=== PATIENT | female | born 1925 | race Caucasian/White ===

== ENCOUNTER 2016-12-25 10:26 | Emergency (ER) | payer MEDICARE ==
[~2016-12-25] VITALS: Ht 157.5 cm; Wt 41.4 kg
[~2016-12-25 10:26] MED LIST: AMLO10TA3 PO; CLOP75TA3 PO
[2016-12-25 10:57] VITALS: BP 114/60; PULSE 83; RESP 14; O2SAT 97
[2016-12-25] MEDS ORDERED: Piperacillin-Tazo 3.375 Gm Inj 3.375 GM in Dextrose 5% Minibag Plus 50 ML IV ONE (11:15)
[2016-12-25] MEDS ORDERED: Vancomycin Dose per Pharmacist XX ONE (11:15)
[2016-12-25] MEDS ORDERED: levoFLOXacin Inj 750 MG in IV Premix 1 EACH IV ONE (11:15)
[2016-12-25] MEDS ORDERED: 0.9% Sodium Chloride 1,000 ML IV ONE (11:15)
[2016-12-25] MEDS ORDERED: Vancomycin Inj 750 MG in 0.9% Sodium Chloride 250 ML IV ONE (11:25)
--- NOTE | 2016-12-25 12:20 | ED.REPORT ---
HPI-General Illness Date of Service Dec 25, 2016 ED Provider: Justine Sutton MD Patient is a 89 year old female with a hx of lymphocytic leukemia and bilateral breast cancer who presents to the ED via EMS from [facility] due to a fever. Pt had pneumonia 2 weeks ago and still has a persistent cough and associated weakness. Patient is very hard of hearing but still able to get around her assisted living center well. Nursing Notes Stated Complaint: CHEST XRAY Chief Complaint: General Complaint Nursing Notes Reviewed: Yes Allergies: Coded Allergies: Sulfa (Sulfonamide Antibiotics) (Verified Allergy, Severe, SEVERE THROMBOCYTOPENIA, 01/04/16) aspirin (Verified Allergy, Severe, WHEEZING, PROBLEMS BREATHING, 01/04/16) epinephrine (Verified Allergy, Severe, SYNCOPE, 01/04/16) Scheduled Amlodipine (Amlodipine) 10 Mg Tablet 10 MG PO DAILY Azithromycin (Zithromax (Z-Govind)) 250 Mg Tablet 250 MG PO DAILY 2 pills on day 1, then one pill a day for 4 more days Clopidogrel Bisulfate (Plavix) 75 Mg Tablet 75 MG PO DAILY General Time Seen by MD: 11:18 Chief Complaint Cough Hx Obtained From: Patient Arrived By: Walk-in Sudden in Onset?: Yes Onset Occurred: 2 days ago Symptom Duration: Since onset Recent Healthcare: Recent doctor visit Similar Sx Previous: Yes Past Medical History Past Medical History Notes: Oncologist: Rhea Past Medical History 1. 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 2. Left renal mass, suspicious for renal cell carcinoma, stable. 3. Bilateral macular degeneration. 4. Bilateral early stage breast cancer, resected. 5. Staph infection Past Surgical History Vulvectomy Family History noncontributory Smoking History Never Smoker Social History Alcohol Use: Denies alcohol use Drug Use: Denies drug use Other Social History: Good social support Ambulatory Status Independent Review of Systems Full Review of Systems Constitutional: Reports: Fever Respiratory: Reports: Non-productive cough Complete sys rev & neg: except as marked. Physical Exam Vital Signs Vital Signs Date Time Temp Pulse Resp B/P Pulse Ox O2 Delivery O2 Flow Rate FiO2 12/25/16 14:24 37.2 89 18 122/70 97 Room Air 12/25/16 13:03 37.2 86 18 136/63 100 Room Air 12/25/16 10:57 37.2 83 14 114/60 97 Room Air Initial VS: Reviewed Head / Eyes: Atraumatic, Normocephalic, PERRL ENT: Mucous membranes moist, Conjunctiva normal, No scleral icterus Cardiovascular: Regular rate & rhythm, Heart sounds normal, Intact distal pulses Abdomen / GI: Soft, Non-tender, No guarding, No rebound, No distention Extremities: Vascular intact, Neuro intact, No swelling, No tenderness Skin: Warm, Dry, No cyanosis Neurologic: Alert, Oriented, Nonfocal Psychiatric: Mood/affect normal, Behavior normal, Normal thought content General/Constitutional: Awake, Cooperative hard of hearing and slightly weak, but still able to get around assisted living home Respiratory / Chest: Atraumatic, Breath sounds NL, Breath sounds = bilat, No respiratory distress, No rales, No rhonchi, No wheezing mild cough Interpretation & Diagnostics Lab Results Interpretation Result Diagram: 12/25/16 1220 12/25/16 1220 Test 12/25/16 12:20 White Blood Count 16.5th/mm3 (3.8-10.1) Red Blood Count 3.72mil/mm3 (3.90-5.20) Hemoglobin 11.4g/dL (12.0-15.6) Hematocrit 34.2% (35.0-46.0) Mean Corpuscular Volume 91.9fL (81-100) Mean Corpuscular Hemoglobin 30.6pg (27.0-35.0) Mean Corpuscular Hemoglobin Concent 33.3% (32.0-37.0) Red Cell Distribution Width 13.5% (12.3-15.4) Platelet Count 255bil/L (150-400) Neutrophils (%) (Auto) 29.8% (40-74) Lymphocytes (%) (Auto) 59.5% (14-46) Monocytes (%) (Auto) 9.7% (4-12) Eosinophils (%) (Auto) 0.2% (0-5) Basophils (%) (Auto) 0.2% (0-3) Hematology Comments Wbc Urine Color Straw (YELLOW) Urine Appearance Hazy (CLEAR,HAZY) Urine pH 6.0 (5.0-8.0) Urine Specific [place] 1.010 (1.003-1.035) Urine Protein Negativemg/dL (NEG,TRACE) Urine Glucose (UA) Negativemg/dL (NEGATIVE) Urine Ketones Negativemg/dL (NEGATIVE) Urine Occult Blood Small (NEGATIVE) Urine Nitrite Negative (NEGATIVE) Urine Bilirubin Negative (NEGATIVE) Urine Urobilinogen Normalmg/dL (NORMAL) Urine Leukocyte Esterase Small (NEGATIVE) Urine RBC 0-2/hpf (0-2) Urine WBC 0-5/hpf (0-5) Urine Epithelial Cells Occasional/hpf (NONE-MOD) Urine Crystals None seen (NONE SEEN) Urine Bacteria Moderate/hpf (NONE-FEW) Urine Hyaline Casts None/lpf (NONE) Urine Granular Casts None seen (NONE SEEN) Urine Waxy Casts None seen (NONE SEEN) Urine Red Blood Cell Casts None seen (NONE SEEN) Urine White Blood Cell Casts None seen (NONE SEEN) Urine Mucus None seen (None Seen) Urine Trichomonas None seen (NONE SEEN) Urine Yeast None (NONE SEEN) Urinalysis Comment None Urine Culture Reflexed Indicated Sodium Level 130mEq/L (134-144) Potassium Level 4.0mEq/L (3.5-5.2) Chloride Level 93mEq/L (97-108) Carbon Dioxide Level 22mmol/L (18-29) Blood Urea Nitrogen 20mg/dL (8-27) Creatinine 0.50mg/dL (0.57-1.00) Estimat Glomerular Filtration Rate 166mL/min (>59) Glucose Level 103mg/dL (60-99) Lactic Acid Level 0.5mmol/L (0.4-2.0) Calcium Level 8.2mg/dL (8.5-10.1) Total Bilirubin 0.4mg/dL (0.0-1.2) Aspartate Amino Transf (AST/SGOT) 23U/L (0-50) Alanine Aminotransferase (ALT/SGPT) 18U/L (0-32) Alkaline Phosphatase 87U/L (25-165) Troponin T 0.010ug/L (0.0-0.011) Pro-B-Type Natriuretic Peptide 322.3pg/mL (0-738) Total Protein 5.8g/dL (6.4-8.4) Albumin 3.5g/dL (3.4-5.0) Procalcitonin 0.11ng/mL (0.00-0.08) ECG Interpretation ECG Interpretation: similar to 01/04/16 Time: 12:14 Interpreted by: ED physician Normal ECG Interpretation: Normal sinus rhythm (84) X-Ray Chest Interpretation Chest Xray Interpretation: IMPRESSION: 1. Mildly increased pulmonary vascularity suggest mild pulmonary edema. No definitive pneumonia. Dictated by: Gera Christianson M.D. on 12/25/2016 at 13:00 Approved by: Gera Christianson M.D. on 12/25/2016 at 13:04 View: Portable Interpretation / Wet Read by: Interpret - Radiologist Re-Eval/Medical Decision Med Decision/Clinical Course Initially concern for sepsis. Started on antibiotics with presumed diagnosis of sepsis. After evaluation her white count is not significantly elevated she is not tachycardic not to She is not hypotensive she is weak she is not confused she is quite hard of hearing Diagnosis at this point is pointing more toward an influenza-like illness however with immunocompromise pneumonia is certainly a possibility despite the normal x-ray. Her pro calcitonin is slightly elevated suggesting infection. She did improve with Augmentin for 5 days and was worse within 3 days of discontinuing. She received a single dose of Zosyn in the emergency department and will be discharged with azithromycin for presumed bacterial infection in the setting of immunocompromise. Both patient and her daughter were happy with the discharge to home and all questions were answered Time of Eval: 14:59 Re-Evaluation/Progress Note: Pt rechecked. WBC count is high and there is definitely some sort of infection going on. Counseled Regarding: Diagnosis, Lab results, Need for follow-up, When/why to return to ED Discharge & Departure Primary Impression: Influenza-like illness Additional Impressions: Cough Weakness Disposition: Home Discharge Condition All VS Reviewed: Yes Condition: Stable Additional Instructions: You have an influenza type illness. You improved with the initial Augmentin then got worse after stopping. You are still coughing and a bit weak, but you do not need supplemental oxygen. Your blood pressure is stable as is your heart rate. These, along with your blood work, do NOT suggest that you are septic. After reviewing your chest x-ray, there are no current signs of pneumonia. However, you do have CLL and are immunocompromise and did improve with the Augmentin. You got a dose of zosyn (powerful antibiotic) in the ER today when I was concerned that you were in fact septic. I am going to suggest that you complete a Z-govind, take 2 pills the first day then one daily for 4 more days. Return to the Emergency Room for any new or worsening symptoms. We hope you feel better soon! Referrals: Riaz Lugo MD (PCP) Yuibvera Attestation Portion of this note were transcribed by Elvira Rojas. I, Dr. Sutton, personally performed the history, physical exam, and medical decision-making: I reviewed and confirmed the accuracy for the information in the transcribed note. Signed by: nahum Barth, 12/25/16 1500 copies to: Riaz Lugo MD, Shawna L MD Dec 25, 2016 12:20 ELVIRA ROJAS Dec 25, 2016 14:28
[2016-12-25 12:34] LABS: BASOPHILS % (AUTO) 0.2 % (0-3); MONOCYTES % (AUTO) 9.7 % (4-12); NEUTROPHILS % (AUTO) 29.8 % (40-74)
[2016-12-25 12:38] LABS: EOSINOPHILS % (AUTO) 0.2 % (0-5); Mean Corpuscular Hemoglobin 30.6 pg (27.0-35.0); Mean Corpuscular Volume 91.9 fL (81-100); Platelet Count 255 bil/L (150-400)
[2016-12-25 13:03] VITALS: BP 136/63; PULSE 86; RESP 18; O2SAT 100
--- NOTE | 2016-12-25 13:05 | DRSVH ---
PROCEDURE: X-RAY CHEST, TWO VIEWS ([id number]) INDICATIONS: 89 year-old woman with cough and shortness of breath. TECHNIQUE: 2 views of the chest were acquired. COMPARISON: [facility], CR, XR CHEST 1VW (PORTABLE), 01/04/2016, 14:52. [facility], CR, XR CHEST 1VW (PORTABLE), 11/09/2015, 9:16. [facility], CR, XR CHEST 2VW, 12/27, 19:56. FINDINGS: Surgical changes and devices: Surgical clips in the right axilla. Lungs and pleura: Mild hyperinflation. Pulmonary vascularity is increased. No pleural effusions or p neumothorax. Mediastinum: Mediastinal contours are normal. Heart size is normal. Bones and chest wall: No suspicious bony abnormalities. Soft tissues appear unremarkable. IMPRESSION: 1. Mildly increased pulmonary vascularity suggest mild pulmonary edema. No definitive pneumonia. Dictated by: Gera Christianson M.D. on 12/25/2016 at 13:00 Approved by: Gera Christianson M.D. on 12/25/2016 at 13:04
[2016-12-25 13:06] LABS: TROPONIN T 0.01 ug/L (0.0-0.011)
[2016-12-25 13:43] LABS: APPEARANCE,URINE HAZY (CLEAR,HAZY); COLOR,URINE STRAW (YELLOW)
[2016-12-25 13:44] LABS: OCCULT BLOOD,URINE SMALL (NEGATIVE); UROBILINOGEN,URINE NORMAL (NORMAL)
[2016-12-25 14:24] VITALS: BP 122/70; PULSE 89; RESP 18; O2SAT 97
[2016-12-25] MEDS ORDERED: AZIT250T4 PO (15:31)
== END 2016-12-25 15:35 | disposition home or self-care (01) ==
LOC: SED 10:26
DX: J11.1 Influenza due to unidentified influenza virus with other respiratory manifestations (principal); R05 Cough; R53.1 Weakness; Z92.21 Personal history of antineoplastic chemotherapy; Z88.2 Allergy status to sulfonamides; Z88.8 Allergy status to other drugs, medicaments and biological substances
CPT/HCPCS: 36415; 71020; 80053; 81000; 82308; 83605; 83880; 84484; 85025; 87040; 87086; 87088; 93005; 96365; 96366; 96367; 99285; J1956; J2543; J7030

== ENCOUNTER 2017-02-03 08:49 | Inpatient (IN) | payer MEDICARE ==
[2017-02-03] VITALS (9 sets, daily range): BP systolic 125–158; BP diastolic 51–83; PULSE 80–96; RESP 19–27; O2SAT 94–98
[~2017-02-03] VITALS: Ht 157.5 cm; Wt 36.9 kg
--- NOTE | 2017-02-03 09:02 | ED.REPORT ---
HPI-General Illness Date of Service Feb 03, 2017 ED Provider: Taqueria Chow DO 89 year old female with a 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 She states that she fell off the couch while she was sleeping, and was unable to get up for over an hour. During the fall she struck her head, but denies any significant trauma or headache. Patient denies any injuries secondary to the fall, and any recent illness. She also reports generalized weakness, and decreased PO intake recently. Currently she is on Augmentin prescribed by Dr. Wilkerson to treat a sinus infection. Patient is hard of hearing and a poor historian. [place]. Nursing Notes Stated Complaint: GROUND LEVEL FALL Nursing Notes Reviewed: Yes Allergies: Coded Allergies: Sulfa (Sulfonamide Antibiotics) (Verified Allergy, Severe, SEVERE THROMBOCYTOPENIA, 01/04/16) aspirin (Verified Allergy, Severe, WHEEZING, PROBLEMS BREATHING, 01/04/16) Scheduled Amlodipine (Amlodipine) 10 Mg Tablet 10 MG PO DAILY Clopidogrel Bisulfate (Plavix) 75 Mg Tablet 75 MG PO DAILY General Time Seen by MD: 09:01 Chief Complaint Other (Fall) Hx Obtained From: Patient Arrived By: Ambulance Sudden in Onset?: No Onset Occurred: Just prior to arrival Caused by: Fall from height... (< 3 feet) Context: Occurred at: Home injury Associated with: Denies: Headache, Loss of consciousness, Neck pain Pertinent Negative: Pt denies other symptoms Context Related History: Reports Cancer Similar Sx Previous: Yes Past Medical History Past Medical History Notes: Oncologist: Rhea Past Medical History 1. 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 2. Left renal mass, suspicious for renal cell carcinoma, stable. 3. Bilateral macular degeneration. 4. Bilateral early stage breast cancer, resected. 5. Staph infection Past Surgical History Vulvectomy Family History noncontributory Smoking History Never Smoker Social History Alcohol Use: Denies alcohol use Drug Use: Denies drug use Other Social History: Good social support Ambulatory Status Independent Review of Systems Full Review of Systems Constitutional: Denies: Chills, Fever Respiratory: Denies: Non-productive cough, Shortness of breath GI: Denies: Abdominal pain, Nausea, Vomiting Musculoskeletal: Denies: Back pain, Extremity pain, Joint pain, Lumbar pain, Neck pain, Thoracic pain Neurologic: Denies: Headache Complete sys rev & neg: except as marked. Physical Exam Vital Signs Vital Signs Date Time Temp Pulse Resp B/P Pulse Ox O2 Delivery O2 Flow Rate FiO2 02/03/17 10:30 89 25 143/67 97 Room Air 02/03/17 09:14 37.1 94 27 139/58 97 Room Air Initial VS: Reviewed Neck: Supple, Non-tender, Full range of motion Extremities: Vascular intact, Neuro intact, No swelling, No tenderness Skin: Warm, Dry, No cyanosis Neurologic: Alert, Oriented, Nonfocal General/Constitutional: Awake, Alert, Well developed Appearance / Presentation: Positive: Frail Hard of hearing. Head / Eyes: Normocephalic, PERRL Mild erythema to the posterior occiput. Respiratory / Chest: Breath sounds NL, No respiratory distress, No rales, No rhonchi, No wheezing Cardiovascular: Heart rate NL, Regular rhythm, Heart sounds NL, Cap refill not delayed, Peripheral circulation NL Interpretation & Diagnostics Lab Results Interpretation Result Diagram: 02/03/17 0959 02/03/17 0959 Test 02/03/17 00:00 02/03/17 09:59 02/03/17 10:23 02/03/17 11:05 Procalcitonin 0.25ng/mL (0.00-0.08) White Blood Count 12.4th/mm3 (3.8-10.1) Red Blood Count 3.85mil/mm3 (3.90-5.20) Hemoglobin 11.3g/dL (12.0-15.6) Hematocrit 34.1% (35.0-46.0) Mean Corpuscular Volume 88.6fL (81-100) Mean Corpuscular Hemoglobin 29.4pg (27.0-35.0) Mean Corpuscular Hemoglobin Concent 33.1% (32.0-37.0) Red Cell Distribution Width 14.1% (12.3-15.4) Platelet Count 329bil/L (150-400) Neutrophils (%) (Auto) 58% (40-74) Lymphocytes (%) (Auto) 32% (14-46) Monocytes (%) (Auto) 8% (4-12) Eosinophils (%) (Auto) 1% (0-5) Basophils (%) (Auto) 0% (0-3) Band Neutrophils % 1% (1-5) Sodium Level 135mEq/L (134-144) Potassium Level 3.5mEq/L (3.5-5.2) Chloride Level 100mEq/L (97-108) Carbon Dioxide Level 19mmol/L (18-29) Blood Urea Nitrogen 18mg/dL (8-27) Creatinine 0.32mg/dL (0.57-1.00) Estimat Glomerular Filtration Rate 279mL/min (>59) Glucose Level 111mg/dL (60-99) Calcium Level 8.2mg/dL (8.5-10.1) Magnesium Level 2.0mg/dL (1.6-2.6) Total Bilirubin 0.6mg/dL (0.0-1.2) Aspartate Amino Transf (AST/SGOT) 60U/L (0-50) Alanine Aminotransferase (ALT/SGPT) 62U/L (0-32) Alkaline Phosphatase 135U/L (25-165) Total Creatine Kinase 28U/L (21-215) Troponin T < 0.010ug/L (0.0-0.011) Total Protein 5.0g/dL (6.4-8.4) Albumin 2.9g/dL (3.4-5.0) Urine Color Yellow (YELLOW) Urine Appearance Hazy (CLEAR,HAZY) Urine pH 6.0 (5.0-8.0) Urine Specific [place] 1.015 (1.003-1.035) Urine Protein Negativemg/dL (NEG,TRACE) Urine Glucose (UA) Negativemg/dL (NEGATIVE) Urine Ketones Negativemg/dL (NEGATIVE) Urine Occult Blood Trace (NEGATIVE) Urine Nitrite Negative (NEGATIVE) Urine Bilirubin Negative (NEGATIVE) Urine Urobilinogen Normalmg/dL (NORMAL) Urine Leukocyte Esterase Negative (NEGATIVE) Urine RBC 0-2/hpf (0-2) Urine WBC 0-5/hpf (0-5) Urine Epithelial Cells Moderate/hpf (NONE-MOD) Urine Crystals None seen (NONE SEEN) Urine Bacteria Few/hpf (NONE-FEW) Urine Hyaline Casts None/lpf (NONE) Urine Granular Casts None seen (NONE SEEN) Urine Waxy Casts None seen (NONE SEEN) Urine Red Blood Cell Casts None seen (NONE SEEN) Urine White Blood Cell Casts None seen (NONE SEEN) Urine Mucus None seen (None Seen) Urine Trichomonas None seen (NONE SEEN) Urine Yeast None (NONE SEEN) Urinalysis Comment None Urine Culture Reflexed Not indicated Lactic Acid Level 0.8mmol/L (0.4-2.0) ECG Interpretation ECG Interpretation: Sinus rhythm, rate [address] changes No change from 12/25/2016 Time: 09:26 Interpreted by: ED physician X-Ray Chest Interpretation Chest Xray Interpretation: IMPRESSION: Bilateral lower lobe pneumonia. Concordant with the preliminary reading Dictated by: Yimi Walton M.D. on 02/03/2017 at 10:29 Approved by: Yimi Walton M.D. on 02/03/2017 at 10:30 View: AP & lat Interpretation / Wet Read by: Interpret - Radiologist CT Head Interpretation IMPRESSION: 1. No acute intracranial abnormality. 2. Moderate to severe chronic white matter small vessel ischemic changes and moderate cerebral volume loss. 3. Small region of encephalomalacia redemonstrated in the left occipital lobe. 4. Bilateral sinus mucosal disease, increased from the prior study, with air-fluid levels in the maxillary sinuses suggesting acute sinusitis. 5. Fluid opacification of the left mastoid air cells redemonstrated compatible with mastoiditis. Dictated by: Shankar Fitzgerald M.D. on 02/03/2017 at 9:55 Approved by: Shankar Fitzgerald M.D. on 02/03/2017 at 10:00 Study: Head CT no contrast Interpretation / Wet Read by: Interpret - Radiologist Re-Eval/Medical Decision Med Decision/Clinical Course Bibasilar pneumonia and sinusitis, additionally she seems to be failing at home due to weakness. I feel that she should be admitted. Rocephin and azithromycin given. Source of Hx: Old records Time of Eval: 10:27 Re-Evaluation/Progress Note: Patient is now accompanied by her son who is at bedside. Discussed lab and radiology results, physical examination findings and need for admission. Patient is amenable to the plan. Return precautions given. All other questions addressed. Time of Eval: 11:17 Re-Evaluation/Progress Note: Patient Code Status is DNAR. Consultation : Referral / Consult Name: Richard Du MD Consulted With: Hospitalist Call Returned at: 11:11 Healthcare Insurance Sales Agent: Agrees with eval, Agrees with plan, Accepts admit Counseled Regarding: Diagnosis, Lab results, Need for admission Discharge & Departure Primary Impression: Pneumonia Disposition: ADMITTED TO HOSPITAL Discharge Condition All VS Reviewed: Yes Condition: Stable Referrals: Riaz Lugo MD (PCP) Yuibvera Attestation Portions of this note were transcribed by Elena Kramer. I, Dr. Chow, personally performed the history, physical exam and medical decision-making; I reviewed and confirmed the accuracy of the information in the transcribed note. Signed by: Davdi Odell, 02/03/2017 and 11:117 copies to: Riaz Lugo MD, Timothy S DO Feb 03, 2017 09:02 ELENA KRAMER Feb 03, 2017 09:10
[2017-02-03] MEDS ORDERED: 0.9% Sodium Chloride 500 ML IV ONE (09:10)
--- NOTE | 2017-02-03 10:01 | DRSVH ---
PROCEDURE: CT BRAIN WITHOUT CONTRAST ([id number]) INDICATIONS: GROUND LEVEL FALL TECHNIQUE: Noncontrast 4.5 mm thick angled axial sections acquired from the foramen magnum to the vertex, with c oronal reformats. COMPARISON: [facility], CT, CT BRAIN WO CON, 12/27/2015, 17:22. FINDINGS: Image quality: There is mild motion artifact. CSF spaces: Basal cisterns are patent. No extra-axial fluid collections. The ventricles are symmet katie in size and shape. There is moderate cerebral volume loss, with resultant ventricular and sulcal prominence. Brain: No intracranial hemorrhage, mass, or mass effect. There is a small region of encephalomalaci a in the left occipital lobe redemonstrated. There are confluent subcortical, periventricular and salvador p white matter hypodensities consistent with moderate to severe chronic small vessel ischemic changes . There is intracranial internal carotid artery atherosclerosis. Skull and face: Calvarium and visualized facial bones appear intact, without suspicious lesions. Sinuses: There is complete mucosal opacification of the right ductal sinus redemonstrated as well as moderate thickening within the bilateral ethmoid and maxillary sinuses. There is new hilar fluid le vels within the maxillary sinuses compatible with sinusitis. There is fluid opacification of the lef t mastoid air cells suggesting mastoiditis. IMPRESSION: 1. No acute intracranial abnormality. 2. Moderate to severe chronic white matter small vessel ischemic changes and moderate cerebral volum e loss. 3. Small region of encephalomalacia redemonstrated in the left occipital lobe. 4. Bilateral sinus mucosal disease, increased from the prior study, with air-fluid levels in the max illary sinuses suggesting acute sinusitis. 5. Fluid opacification of the left mastoid air cells redemonstrated compatible with mastoiditis. Dictated by: Shankar Fitzgerald M.D. on 02/03/2017 at 9:55 Approved by: Shankar Fitzgerald M.D. on 02/03/2017 at 10:00
[2017-02-03 10:14] LABS: Mean Corpuscular Hemoglobin 29.4 pg (27.0-35.0); Mean Corpuscular Volume 88.6 fL (81-100); Platelet Count 329 bil/L (150-400)
[2017-02-03] MEDS ORDERED: Azithromycin Inj 500 MG in Dextrose 5% w/Vial Mate 250 ML IV ONE (10:30)
[2017-02-03] MEDS ORDERED: cefTRIAXone Inj 2,000 MG in Dextrose 5% Minibag Plus 50 ML IV ONE (10:30)
--- NOTE | 2017-02-03 10:32 | DRSVH ---
PROCEDURE: X-RAY CHEST, TWO VIEWS ([id number]) INDICATIONS: cough, weakness TECHNIQUE: 2 views of the chest were acquired. COMPARISON: 12/25/2016 FINDINGS: Surgical changes and devices: Surgical clips right axilla.. Lungs and pleura: No pleural effusions or pneumothorax. Bilateral lower lobe infiltrates have develo ped in the interim. Mediastinum: Mediastinal contours are normal. Heart size is normal. Bones and chest wall: No suspicious bony abnormalities. Soft tissues appear unremarkable. IMPRESSION: Bilateral lower lobe pneumonia. Concordant with the preliminary reading Dictated by: Yimi Walton M.D. on 02/03/2017 at 10:29 Approved by: Yimi Walton M.D. on 02/03/2017 at 10:30
[2017-02-03 10:38] LABS: APPEARANCE,URINE HAZY (CLEAR,HAZY); COLOR,URINE YELLOW (YELLOW); OCCULT BLOOD,URINE TRACE (NEGATIVE); UROBILINOGEN,URINE NORMAL (NORMAL)
[2017-02-03] MEDS ORDERED: 0.9% Sodium Chloride 1,000 ML IV SCH ×2 (10:40→11:12)
[2017-02-03 10:41] LABS: Creatine Kinase 28 U/L (21-215)
[2017-02-03 10:42] LABS: TROPONIN T < 0.010 ug/L (0.0-0.011)
[2017-02-03 11:02] LABS: BASOPHILS % (AUTO) 0 % (0-3); EOSINOPHILS % (AUTO) 1 % (0-5); MONOCYTES % (AUTO) 8 % (4-12); NEUTROPHILS % (AUTO) 58 % (40-74)
[2017-02-03] MEDS ORDERED: Alum-Mag Hydrox-Simeth 30 mL Suspension PO PRN ×2 (11:15→15:35)
[2017-02-03] MEDS ORDERED: Ondansetron 2 mg/mL 2 mL Inj IVPUSH PRN ×2 (11:15→15:35)
--- NOTE | 2017-02-03 13:15 | NUR ---
ADMIT Admitted a 89/F into room 3012 at 1215 following report from ED RN, Keri Noguera. Pt introduced to staff, bed controls and call light. Pt able to amb from stretcher to BR, unsteady and req FWW. Pt is extremely NIKOLAI. She denies any pain/discomfort at this time. Noted redness to coccyx. IV infusing ABO without issue. She is on RA, denies any SOB, no noted distress. Pt states, "Are you gals working [facility] the jail? That's where I'm going when I leave." Son Adolfo bringing in medications per ED report. TELE placed, per java j2ee technical lead pt is SR 80-90's. Bed alarm placed for safety.
[2017-02-03] MEDS ORDERED: AMOX600S46 PO (14:43)
[2017-02-03] MEDS ORDERED: AMLO5TAB2 PO (14:43)
[2017-02-03] MEDS: 0.9% Sodium Chloride 1,000 ML IV SCH (15:32)
[2017-02-03] MEDS ORDERED: Polyethylene Glycol (PEG) 17 Gm Powder PO PRN (15:35)
--- NOTE | 2017-02-03 15:57 | NUR ---
Communication with family Pt is requesting numerous times for staff to call her son, Adolfo. No contact information available in chart nor at [place] ([phone]). Contact numbers in chart are for daughters, Stephanie ([phone]) and Kierra (cell [phone]). This RN was able to contact dtr Stephanie who provided son Adolfo's number - [phone].
[2017-02-03] MEDS: Piperacillin-Tazo 3.375 Gm Inj 3.375 GM in Dextrose 5% Minibag Plus 50 ML IV SCH (17:26)
[2017-02-03] MEDS: Heparin 5,000 Unit/mL Inj SUBQ SCH (17:32)
--- NOTE | 2017-02-03 17:37 | NUR ---
Patient concerns Pt req to dc back home as "this room is too cold and I'm fighting pneumonia", "I haven't had any care since I got here" and "no one has been in to make sure I'm warm." Dtr at bedside, aware of concerns. Explained importance of IV ABO and IVF, pt states she doesn't feel like it's needed and she would like to go home. Dtr speaking with other dtr and son and both feel that pt needs to stay.
--- NOTE | 2017-02-03 18:39 | HP ---
[address] [address] HISTORY AND PHYSICAL PATIENT: ANUPAMA HOBSON : 1925 MR#: [id number] ADMIT: 02/03/2017 JOB ID: [id number] PRIMARY CARE PROVIDER: Riaz Lugo MD ONCOLOGIST: Evy Wilkerson MD Patient admitted from ED inpatient status, Blue Team. CHIEF COMPLAINT: Weakness and cough. HISTORY OF PRESENT ILLNESS: This is an 89-year-old female, who is a very difficult historian. She is very hard of hearing and it is difficult to get specific answers from her. She is pleasant but very vague and cannot hear the questions very well. Nonetheless, she presents to the ED today. She has had progressive weakness she says for a few months, but she says in the last couple of days it has gotten to the point where she can hardly move. Apparently sometime in the night, she rolled on her sofa, landed on the floor and was now too weak to get up. She lives at [facility], I think. She was on the floor for an hour before they came. They called an ambulance and she was brought to the emergency department for evaluation. Dr. Chow called me, felt the patient had pneumonia, and wants to admit her. The patient clearly has had a cough and has a cough during my exam. She says she has had this for two or three months, but says it has been getting much worse. Denies any fevers or chills. She has had a little bit of exertional shortness of breath. Her sputum has been pretty much nonproductive that I can elicit but, again, this is a pretty vague historian. She is reviewing her notes. The patient had an appointment with Dr. Wilkerson just a few days ago. His note mentions that she is now on two months of obinutuzumab/chlorambucil, her last dose was on January 03 and she is due for cycle on February 05, but she was seen two days ago and he decided against that because of her sinusitis that he has noticed. He ordered her Augmentin, but she presented to the ED two days later, as noted above. In the emergency department, head CT was done due to the fall which was negative, but it did show acute sinusitis possible in the maxillary area with air fluid levels and possibly mastoiditis. Chest x-ray was also done which shows bilateral lower lobe infiltrates. Unfortunately, I cannot get it to open, am trying to review that x-ray but it was read as bilateral lower lobe pneumonia by Radiology. Complicating this is the patient's poor understanding of her disease, and she also tells me that she lives all alone. She has a couple of family members and as best I can sort out with her, only one lives here and they are "on vacation" and are calling and checking every day, but the other ones are not around. The patient lives by herself in [place], as mentioned. The patient denies any headache, diarrhea, abdominal pain, fevers or chills. REVIEW OF SYSTEMS: A complete review of systems obtained from patient, all pertinent positives as noted in HPI above, rest review of systems are negative. PAST MEDICAL HISTORY: 1. 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 2. Known left renal mass, presumably malignant. 3. History of bilateral breast cancer status post lumpectomy. 4. Macular degeneration, partially blind. 5. Glaucoma. 6. Diverticulosis. 7. Osteopenia. 8. T and A. MEDICATIONS: The patient is not real familiar with the meds. Apparently she gives it to herself. The best our med rec nurse could get was from the pharmacies and was Norvasc 5-10 daily. Whether patient is taking this or not is unclear, she got the prescription for the Augmentin, and there is also a prescription for Plavix at the pharmacy and patient is not aware she takes that. This will all need to be sorted out prior to discharge. ALLERGIES: 1. EPINEPHRINE. 2. ASPIRIN. SOCIAL HISTORY: Lives alone in [place]. Never smoked. Consumes no alcohol. FAMILY HISTORY: Unable to obtain this from this patient at this time. PHYSICAL EXAMINATION: No fever, pulse 88, respiratory rate 27, now 19, blood pressure 139/81, O2 sats 97% on room air. Thin, frail, elderly female, a little bit confused. Very hard of hearing. Skin is warm and dry without any obvious rashes. Eyes are not convergent, partial blindness. No active lesions. Mouth shows adequate hydration. No lesions. Neck is supple. Thyroid feels grossly normal. Her lungs have bibasilar bronchial breath sounds, crackles and some rales. Her cardiac exam is regular without an obvious murmur. Abdomen is soft, nonacute, benign. Extremities showed no significant edema. Cranial nerves 2-12 intact. No gross motor or sensory defects noted. DIAGNOSES: 1. Profound weakness present on admission, active. This could be secondary to infections, pneumonia and/or sinusitis, chemotherapy, or other considerations. Plan is to treat her infections, get Physical Therapy involved, check her thyroid to look for other causes. 2. Possible rhinosinusitis and mastoiditis present on admission, active. I will treat this with Zosyn. Due to the patient's underlying immunocompromised state and presence of long-term infection, will consult with Infectious Disease. 3. Possible pneumonia, CAP, present on admission, active. I need to review x-ray. Will repeat a procalcitonin noting that it is mildly elevated at 0.25. Will treat with Zosyn and azithromycin. Will get a follow-up procal in the morning and follow up x-rays as needed. 4. Chronic relapsed chronic lymphocytic leukemia, present on admission, stable. As noted above, chemotherapy is on hold but was planned for the 6th of this month. 5. Elevated liver function tests, present on admission, active. Will send acute hepatitis panel. 6. Glaucoma, stable. 7. Macular degeneration, partial blindness, stable. 8. Med rec. This will need to be straightened out prior to discharge. 9. Disposition: Home situation. Will talk with our discharge planners to better clarify the patient's home situation as it appears she is going to need quite a bit more help.
[2017-02-04] VITALS (9 sets, daily range): BP systolic 111–144; BP diastolic 62–71; PULSE 64–95; RESP 16–20; O2SAT 90–97
[2017-02-04] MEDS: Piperacillin-Tazo 3.375 Gm Inj 3.375 GM in Dextrose 5% Minibag Plus 50 ML IV SCH ×3 (00:35→20:24)
[2017-02-04] MEDS: Heparin 5,000 Unit/mL Inj SUBQ SCH ×4 (01:42→23:47)
--- NOTE | 2017-02-04 02:36 | NUR ---
Activity Patient resting/sleeping for most of shift. Up to bedside commode using fww. Patient very unsteady while ambulating. Urine output very low compared to how many times patient is up to bsc. VSS. Call light within reach. Care continues.
[2017-02-04 06:23] LABS: Mean Corpuscular Hemoglobin 28.9 pg (27.0-35.0); Mean Corpuscular Volume 88.5 fL (81-100); Platelet Count 367 bil/L (150-400)
[2017-02-04 08:09] LABS: NEUTROPHILS % (AUTO) 48 % (40-74)
[2017-02-04 08:10] LABS: BASOPHILS % (AUTO) 0 % (0-3); EOSINOPHILS % (AUTO) 0 % (0-5); MONOCYTES % (AUTO) 10 % (4-12)
[2017-02-04] MEDS: Azithromycin Inj 500 MG in Dextrose 5% w/Vial Mate 250 ML IV SCH (08:31)
[2017-02-04] MEDS: 0.9% Sodium Chloride 1,000 ML IV SCH (08:34)
--- NOTE | 2017-02-04 12:09 | NUR ---
Patient's son approached UR specialist and gave preference for [facility], this is something his sister and him have been working on. Patient comes from [place] at [facility] and they would like to see patient have rehab and then evaluate intermediate accountant care plan. Information given to PEST TECHNICIAN and access and facesheet faxed to [facility].
--- NOTE | 2017-02-04 13:35 | CONS ---
[address] [address] CONSULTATION REPORT PATIENT: ANUPAMA HOBSON : 1925 MR#: [id number] ADMIT: 02/03/2017 JOB ID: [id number] DATE OF SERVICE: 02/04/2017 INFECTIOUS DISEASE CONSULTATION: I thank Dr. Du for this timely consult. REASON FOR CONSULTATION: Bilateral pneumonia and bilateral maxillary sinusitis in an elderly woman with wasting and underlying CLL. HISTORY OF PRESENT ILLNESS: The patient is an 89-year-old woman who is followed by Dr. Wilkerson for CLL. She recently started a new regimen including a monoclonal antibody as well as chlorambucil for treatment of her longstanding CLL. She was due to get a second cycle of this combination chemo on January 31 but this was canceled due to a persistent and worsening cough. The patient tells us she has had this cough for weeks and it has been getting worse though the exact duration of it appears a bit unclear. She states that the cough is essentially nonproductive as the only sputum she has is scant amounts of clear sputum. She states she has not had fevers or chills in association with this cough but she has noticed increasing weakness. She also relates a persistent longstanding weight loss and almost complete anorexia as well as progressive weakness. She was actually found on the floor at the assisted living facility where she lives and the patient relates she ended up on the floor because she just became too weak really to get around on her own. She is concerned now that she may have to live in a halfway as she can no longer function semi independently on her own. She denies any unusual exposures to ill persons nor has she had any travel or any outdoor exposures of any kind. She likewise has no history of tuberculosis exposure. PAST MEDICAL HISTORY: 1. CLL. 2. Current left renal mass of unknown etiology though thought to be perhaps malignant. 3. Status post breast cancer surgery. 4. Malnutrition. SOCIAL HISTORY: The patient lives at the [facility], or did until the date of admission. She is a nonsmoker, nondrinker. She lives at [place] by herself. FAMILY HISTORY: Negative for tuberculosis as far she knows in any first or second-degree relatives nor has she had any recent exposure. REVIEW OF SYSTEMS: The patient states she has no headache. She denies sinus symptoms or pain. No facial pain. She does not have sore throat. She has a persistent hacking cough which she states has burn present perhaps for weeks and has been worsening. This cough is minimally productive. There is no hemoptysis. No pleuritic chest pain. She has no nausea, vomiting, diarrhea, but almost total anorexia. She says when confronted by a bunch of food her reaction is not to eat at all. No urgency, frequency, dysuria. No swelling of the legs. No report of swollen joints. Remainder of the review of systems is negative. PHYSICAL EXAMINATION: Reveals a cachectic, elderly woman. Her BMI is 15 and her weight only 38 kg. She tells us that when she was in good health, her weight was about 52-53 kg so she has lost almost a third of her previous normal body weight. She is afebrile, has been since admission when she came in just a little over 24 hours ago. She has been afebrile ever since. Temperature 36.8, pulse 95, respiratory rate 18-20. She is saturating well on room air. Blood pressure 111/62. The patient appears quite weak overall and is hard of hearing but in speaking on her left side she can make out questions. She is alert and oriented. Head without trauma though she does have obvious temporal wasting. Eyes without conjunctivitis or scleral icterus. Oral cavity, no thrush, no hairy leukoplakia. No pharyngitis. Neck is reasonably supple and very thin. There is no palpable adenopathy in the cervical or supraclavicular areas. Her supraclavicular fossae are very recessed compatible with her wasting. Lungs are notable for considerable rales at the left greater than the right base. Cardiac tones: Regular rate and rhythm without appreciable murmur. Abdomen is soft and nontender without appreciable hepatosplenomegaly or ascites. She does not have a Reyes catheter. No suprapubic tenderness. Extremities: No edema. No cellulitis and no swollen joints. Peripheral pulses present and she has seems to be perfusing extremities well. LABORATORIES: Include white count 12,000 yesterday when she was admitted, today 10,000. Completely normal differential both days. Creatinine 0.32. AST and ALT both around 60. Bilirubin and alk phos both normal. CRP is 8. Procalcitonin 0.18 and that is down from yesterday 0.25. Urinalysis without white cells. Cryptococcal antigen and serum is pending. We just ordered that in fact. Hep panel is pending. Micro studies include negative respiratory viral PCR. Blood cultures are pending. Urine pneumococcal and Legionella antigens have been ordered but have not yet been done. IMAGING: Was carefully reviewed on the computer. A chest x-ray done yesterday on the date of admission, shows bilateral lower lobe infiltrates and looking carefully at this chest x-ray, these appear to be rather nodular and more notable at the right base than the left. These are clearly new over the past few months and were not seen at all on a CT scan done sometime ago. A CT scan of the brain done because she was found on the floor showed some small vessel ischemic type changes and encephalomalacia in the left occipital lobe. She had pretty significant bilateral maxillary sinus abnormalities with air-fluid levels, though this area is unimpressive clinically. Also noted was fluid within the left mastoid compatible with mastoiditis. IMPRESSION: This is an unfortunate 89-year-old woman who seems to have ongoing wasting in the setting of CLL. She recently started a new dual chemo with chlorambucil and a monoclonal antibody therapy but was forced to defer the second course of this because of increasing cough. She was subsequently found on the floor at her assisted living facility. Her x-rays and history clearly suggest bilateral pneumonia which seems to have a nodular appearance to it on chest x-ray. It is a bit odd that she has no fever and really no leukocytosis and procalcitonins which are functionally normal at this point if this is indeed a bacterial process. Our viral PCR panel has already returned negative. Also a little bit odd is that she has no symptoms of sinusitis or mastoiditis despite fairly impressive evidence of both on CT scan of the brain. Most likely organisms here in a CLL patient would be pneumococcus, H flu, Moraxella and similar organisms. Gram-negative rods including Pseudomonas cannot be excluded in this circumstance and I agree with the initial antibiotics as chosen by Dr. Du. Additional workup should be directed at more intracellular and atypical pathogens including perhaps cryptococcus, Aspergillus or other fungi. If no immediate cause for these infiltrates is found, we may also need to turn our attention to mycobacteria and work this up and may even need to consider bronchoscopy depending on her clinical course. The patient's wasting is quite profound and it is not surprising she can no longer take care of herself. I think one of the critical things with this case is to address her nutrition and trying get her BMI to a more functional level. RECOMMENDATIONS: 1. I agree with the azithromycin and Zosyn as started by Dr. Du. 2. To workup additional possibilities we have ordered a galactomannan as well as serum Aspergillus antibodies. 3. We have also ordered a cryptococcal antigen. 4. We await the urine antigens for Legionella and pneumococcus as these may prove very helpful. 5. I would strongly consider a dietary consult to see if this patient can be motivated to increase her p.o. intake and improve her wasting. 6. If her infiltrates progress or continue, she may need a bronchoscopy to be considered to evaluate the possibility of a mycobacterial or fungal infection which might not be amenable to the diagnosis by less invasive method.
--- NOTE | 2017-02-04 13:53 | PCM.PNMED ---
Subjective Date of Service Feb 04, 2017 Subjective Over night no problems. Patient does have fever this morning 38.3 and nurse notes a lot of cough. Seen by ID team, CT chest ordered. Exam Vital Signs Vital Sign - Last Date Time Temp Pulse Resp B/P Pulse Ox O2 Delivery O2 Flow Rate FiO2 02/04/17 13:17 38.3 82 16 116/65 93 Room Air Intake and Output 02/03/17 02/03/17 02/04/17 Cumulative From/Thru 15:00 23:00 07:00 02/03/17 09:14 - 02/04/17 06:24 Intake Total 500 ml 799 ml 980 ml 2279 ml Output Total 500 ml 500 ml Balance 500 ml 299 ml 980 ml 1779 ml Intake Oral 500 ml 400 ml 900 ml IV Total 500 ml 299 ml 580 ml 1379 ml Output Urine Total 500 ml 500 ml # Voids 1 5 6 # Bowel Movements 0 0 Exam Eyes; mychal eom intact ENMT; good hydration, nearly deaf CV; regular, no murmur Resp; coarse crackles in bases, bronchial breath sounds GI; soft non acute benign Skin; no overt infection or rash Neuro; 2-12 intact, no motor deficits Lab and Diagnostics Result Diagram: 02/04/17 0530 02/03/17 0959 Assessment & Plan 1. Profound weakness present on admission, active. This could be -possible secondary to infections, pneumonia and/or sinusitis, chemotherapy, etc. -treat her infections, -Physical Therapy 2. Possible rhinosinusitis and mastoiditis present on admission, active. -Zosyn IV -ID consult, possible unusual organism, 3. Possible pneumonia, CAP, present on admission, active. -Zosyn and Azithromycin, day #2 -CT pending, review -seen by ID, input appreciated 4. Chronic relapsed chronic lymphocytic leukemia, present on admission, stable. -chemotherapy is on hold but was planned for the 6th of this month 5. Elevated liver function tests, present on admission, active. -send acute hepatitis panel. 6. Glaucoma, stable -monitor 7. Macular degeneration, partial blindness, stable. -monitor 8. Med rec. This will need to be straightened out prior to discharge. 9. Poor nutrition, present on admission, active -dietary consult 9. Disposition: Home situation. Will talk with our discharge planners to better clarify the patient's home situation as it appears she is going to need quite a bit more help. [employer] Devices: Intermittant Pneumatic CD Richard Du MD Feb 04, 2017 13:53
--- NOTE | 2017-02-04 14:15 | DRSVH ---
PROCEDURE: CT CHEST WITHOUT CONTRAST ([id number]) INDICATIONS: SOB/cough TECHNIQUE: Noncontrast 5 mm thick sections acquired from the pulmonary apices to the posterior costophrenic angl es. 7 mm thick coronal and sagittal MIP reformats were then acquired. For radiation dose reduction, the following was used: automated exposure control, adjustment of mA and/or kV according to patient size. COMPARISON: [facility], CT, CT ABD PELVIS W CON, 08/15/2016, 15:12. [facility], CT, CHEST/ABD/PELVIS W/CON (PNL), 03/25/2013, 12:40. FINDINGS: Image quality: Excellent. Lungs and pleura: A 3 mm diameter pulmonary nodule is present within the right upper lobe unchanged f rom the study dated 03/25/13 (series 3, image 19). Patchy pulmonary opacities are present within the d ependent lung bases bilaterally. These are more confluent on the left. There are small bilateral low density pleural effusions. Trace patchy pulmonary opacities are also present within the inferior righ t middle lobe. Mediastinum: Heart size is normal. There is a trace pericardial effusion which is new when compared with the study dated 08/15/16. No mediastinal adenopathy by size criteria. The aortic root measures 4.0 cm in diameter. This is slightly increased from the prior study where the aortic root measures ap proximately 3.8 cm in diameter on the study dated 03/25/13. The central pulmonary arteries are normal in size. Scattered atheromatous calcifications are present within the aortic arch. Esophagus is nor mal in caliber. No hiatal hernia. Bones and chest wall: No suspicious bony lesions. No vertebral body compression fractures. No axil ada or supraclavicular adenopathy by size criteria. Thyroid gland is poorly characterized. Abdomen: A thick rimmed, centrally hypodense lesion is partially visualized within the upper pole th e left kidney. This appears grossly similar in size to the study dated 03/25/13. Visualized upper abdo wayne solid organs and bowel loops appear normal in the absence of contrast. IMPRESSION: 1. Multifocal basilar patchy pulmonary opacities and small low density pleural effusion suspicious fo r aspiration/infection. Short interval followup is recommended with resolution of the patient's sympt oms to ensure there is no underlying pulmonary pathology. 2. Borderline annular aortic ectasia slightly increased in diameter when compared with the study from 2013. 3. Trace pericardial effusion, new when compared with the study from August 2016. 4. Left upper pole renal mass partially visualized on this limited noncontrast study of the abdomen. 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 Dictated by: Rosita Puentes M.D. on 02/04/2017 at 14:06 Approved by: Rosita Puentes M.D. on 02/04/2017 at 14:14
--- NOTE | 2017-02-04 14:50 | NUR ---
Social Work-initial assessment: Data:See initial assessment. Pt is an 89 y/o female who was admitted on 02/03/17 for Pneumonia, generalized weakness per H&P. Pt's insurance is [employer] and PCP is Riaz Lugo MD. EMR Reviewed. Pt's readmission score is not available. SW met with pt briefly at bedside. Pt appeared confused and was not appropriate to discuss discharge planning. SW called DBK daughter Lara to discuss discharge planning, SW role explained. Pt resides at [facility] where pt was independent with basic ADLs. No steps in unit. Pt uses a walker at baseline and does not drive. Pt has no HH or SNF history. Pt's daughter reports she has completed DPOA/ advanced directive and SW requested she provide the hospital with a copy. Pt has no long term care phlebotomist care or VA benefits. Pt's daughter reports pt has been struggling with ADL's recently and they feel she required more help. PT assessed pt and is recommending SNF. Choice list provided and daughter expressed preference for [facility] SNF. UR Specialist sent referral to [facility]. PASSR is in chart. SW will update daughter when [facility] responds. SW provided phone number on white board in room. SW will continue to follow. Assessment:Pt who resides at [place] and would benefit from SNF. Plan:Pt is against the idea of assistance at home at this time. Pt's family is supportive. SW will continue to follow. Addendum: 02/04/17 at 1500 by CHRISTIAN ELKINS Amended: Links added.
--- NOTE | 2017-02-04 15:40 | NUR ---
[facility] can accept when medically stable with Dr. Steve to follow. Insurance authorization will need to be obtained. KASSIE Slade
--- NOTE | 2017-02-04 15:46 | NUR ---
NUTRITION ASSESSMENT: ASSESS: 89 YO female admitted for weakness secondary to infections, pneumonia and or sinusitis. Consult received for cachexia as patient with BMI of 15.2. Tried to educate pt, but education limited as pt is very hard of hearing and no family was at bedside. Handouts for tips to increase appetite left at bedside. Pt states that she has never been a big eater and has never weighed more than 110 lbs so does not appear concerned about her current wt. Pt willing to received 3 ensure per day. 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 LABS: Reviewed. Cr 0.32, AST 60, ALT 62, ALB 2.9. MEDS: Reviewed. GI: No BM reported yet. CURRENT WT: 37.7 kg. UBW from 03/2013-02/2015 was 43.5-47.8 kg. Wt has slowly declined since February 2015 with pt losing approx. 21% of body weight over the past 2 years. DIET: General. PO 25-75% x 2 meals. EST. NEEDS (Cancer cachexia): 6772-1297 kcals (30-40 kcals/kg BW), 55-75 g protein (1.5-2.0 g/kg BW) NUTRITION DIAGNOSIS: 1.) Malnutrition related to physiological causes increasing nutrient needs due to illness as evidenced by severe wt loss, BMI of 15.2 NUTRITION INTERVENTION: 1.) Will add vanilla ensure TID to help encourage weight gain. MONITOR / EVAL: PO intake, labs, nutritional status. Follow per high nutritional risk guidelines.
--- NOTE | 2017-02-04 17:18 | NUR ---
weak Pt denies pain. Worked with PT. sat in chair for a short time then asked to stay in bed d/t weakness. Bed in low position, upper rails up, call light in reach.
[2017-02-05] MEDS: 0.9% Sodium Chloride 1,000 ML IV SCH ×2 (02:15→16:44)
[2017-02-05 03:10] LABS: Hepatitis A Antibody IgM Negative (Negative); Hepatitis B Core Antibody IgM Negative (Negative)
[2017-02-05 05:54] VITALS: BP 176/90; PULSE 50; RESP 16; O2SAT 96
[2017-02-05 06:19] VITALS: BP 126/67
[2017-02-05 07:14] LABS: Mean Corpuscular Hemoglobin 29.2 pg (27.0-35.0); Mean Corpuscular Volume 88.4 fL (81-100); Platelet Count 348 bil/L (150-400)
[2017-02-05 07:46] LABS: BASOPHILS % (AUTO) 0 % (0-3); EOSINOPHILS % (AUTO) 3 % (0-5); MONOCYTES % (AUTO) 6 % (4-12); NEUTROPHILS % (AUTO) 40 % (40-74)
[2017-02-05] MEDS: Azithromycin Inj 500 MG in Dextrose 5% w/Vial Mate 250 ML IV SCH (07:59)
[2017-02-05] MEDS: Heparin 5,000 Unit/mL Inj SUBQ SCH ×2 (07:59→16:44)
--- NOTE | 2017-02-05 08:15 | PCM.PNMED ---
Subjective Date of Service Feb 05, 2017 Subjective Overnight did well. Eating breakfast with dietary suppliments, good. Feels a bit better. Hearing aid battery out again, difficult to communicate with patient. Exam Vital Signs Vital Sign - Last Date Time Temp Pulse Resp B/P Pulse Ox O2 Delivery O2 Flow Rate FiO2 02/05/17 06:19 126/67 02/05/17 05:54 37.1 50 16 96 Room Air Intake and Output 02/04/17 02/04/17 02/05/17 Cumulative From/Thru 15:00 23:00 07:00 02/03/17 09:14 - 02/05/17 06:22 Intake Total 1501 ml 1054 ml 4834 ml Output Total 870 ml 550 ml 1920 ml Balance 631 ml 504 ml 2914 ml Intake Oral 672 ml 300 ml 1872 ml IV Total 829 ml 754 ml 2962 ml Output Urine Total 870 ml 550 ml 1920 ml # Voids 3 9 # Bowel Movements 0 0 Exam Eyes; mychal eom intact ENMT; good hydration, nearly deaf, no sinus area tenderness CV; regular, no murmur Resp; clearier today but with persistent bronchial breath sounds in the bases and a few crackles GI; soft non acute benign Skin; no overt infection or rash, dry Neuro; 2-12 intact, no motor deficits Lab and Diagnostics Result Diagram: 02/05/17 0622 02/03/17 0959 Assessment & Plan 1. Profound weakness present on admission, active. -possible secondary to infections, pneumonia and/or sinusitis, chemotherapy, etc. -treat her infections, -Physical Therapy -nutritional support 2. Possible rhinosinusitis and mastoiditis present on admission, active. -Zosyn IV, day 3 -ID consult, possible unusual organism, 3. Possible pneumonia, CAP, present on admission, active. -Zosyn and Azithromycin, day #3 -CT pending, review -seen by ID, input appreciated -awaiting further infections markers and cultures 4. Chronic relapsed chronic lymphocytic leukemia, present on admission, stable. -chemotherapy is on hold but was planned for the 6th of this month 5. Elevated liver function tests, present on admission, active. -send acute hepatitis panel. 6. Glaucoma, stable -monitor 7. Macular degeneration, partial blindness, stable. -monitor 8. Med rec. This will need to be straightened out prior to discharge. 9. Poor nutrition, present on admission, active -dietary consult 9. Disposition: Home situation. Will talk with our discharge planners to better clarify the patient's home situation as it appears she is going to need quite a bit more help. VTE Mechanical Devices: Intermittant Pneumatic CD Richard Du MD Feb 05, 2017 08:15
[2017-02-05] MEDS: Piperacillin-Tazo 3.375 Gm Inj 3.375 GM in Dextrose 5% Minibag Plus 50 ML IV SCH ×2 (09:11→20:28)
[2017-02-05 09:17] VITALS: PULSE 84
[2017-02-05 09:58] VITALS: BP 126/61; PULSE 81; RESP 16; O2SAT 95
--- NOTE | 2017-02-05 11:32 | PROG NOTE ---
[address] [address] PROGRESS NOTE PATIENT: ANUPAMA HOBSON : 1925 MR#: [id number] ADMIT: 02/03/2017 JOB ID: [id number] DATE: 02/05/2017 INFECTIOUS DISEASE FOLLOW UP NOTE: REASON FOR FOLLOW UP: Bilateral pulmonary infiltrates in an elderly female. INTERVAL HISTORY: Overnight, the patient reports she is "better." She is so hard of hearing today though and a unilateral left-sided hearing aid is not functioning that well so it is very hard to get much in the way of history. She tells us she feels very weak and tired but no fevers, chills or worsening respiratory situation. Beyond that, we really cannot communicate with her. PHYSICAL EXAMINATION: Reveals a wasted and tired elderly woman lying in bed. She is afebrile. Temperature 36.2, pulse 81, respiratory rate 16, blood pressure 126/61, saturating reasonably well on room air 95%. She has obvious temporal wasting. Oral cavity unremarkable. Lungs with fair air flow but crackles at the bases. Cardiac tones distant and regular. Abdomen without change. Soft and nontender. LABORATORIES: Include white count which is improved from 12,000 on admission to 6000. The differential is a bit odd but she has underlying CLL, so we have 40% neutrophils and 50% lymphocytes. Her creatinine 0.36. CRP 8. Procalcitonin 0.13 continuing to trend down from 0.25 on admission, though it is hard to know what changes in numbers that small mean. She does not have pyuria. Hepatitis C antibody is negative. Aspergillus antibodies and cryptococcal antigen are pending. Blood cultures remain negative. Respiratory viral PCR negative and urine pneumococcal antigen negative. The chest CT we ordered yesterday was reviewed. It shows bilateral basilar patchy opacities consistent with either aspiration pneumonia or some other form of bilateral pneumonia. She also has a trace pericardial effusion as well as a left renal mass which is thought to be an indolent neoplasm but has never been biopsied. IMPRESSION: This patient seems perhaps slightly better overnight. It remains unclear to me if we are treating a bacterial pneumonia, and if so, whether or not this is aspiration as she has no fever, no remaining leukocytosis and a relatively normal procalcitonin. It is possible with her CLL that she could have an unusual organism such as a mycobacterial fungus and we are evaluating these possibilities serologically to the extent we can at this point. RECOMMENDATIONS: 1. Will continue with Jose at this time. 2. We await the many pending studies including the crypto antigen. 3. Pulmonary involvement with bronchoscopy might be indicated if an aggressive approach is desired in this very debilitated and elderly woman. It may be that if her infiltrates fail to substantially improve that bronchoscopy would be our best chance to recover causative organism or discover the underlying reason.
[2017-02-05 16:13] VITALS: BP 115/66; PULSE 76; RESP 16; O2SAT 96
--- NOTE | 2017-02-05 16:31 | NUR ---
weakness/TELLER Pt declined sitting up in chair for meals. Bed upright while eating. Hearing aid in L ear-not sure if effective. Family in visiting, asked to bring in a new battery if that may be the cause. Pt worked with PT. Will continue to monitor.
[2017-02-05 20:39] VITALS: BP 129/67; PULSE 76; RESP 16; O2SAT 93
[2017-02-06] VITALS (8 sets, daily range): BP systolic 114–174; BP diastolic 59–74; PULSE 71–92; RESP 16–18; O2SAT 93–98
[2017-02-06] MEDS: Heparin 5,000 Unit/mL Inj SUBQ SCH ×3 (00:19→17:22)
--- NOTE | 2017-02-06 03:47 | NUR ---
NOC shift note Patient slept intermittently, denied pain. Patient is weak when getting up to the BSC with one person, which is about every two hours. Using call light for assistance. Coughing less than previous night. Calm and cooperative with care. Difficult to communicate with r/t no working hearing aides- using paper/pen or speaking loudly into left ear. Bed alarm on for safety, intentional rounding in place.
[2017-02-06] MEDS: Azithromycin Inj 500 MG in Dextrose 5% w/Vial Mate 250 ML IV SCH (08:22)
--- NOTE | 2017-02-06 09:03 | DRSVH ---
PROCEDURE: X-RAY CHEST ONE VIEW, PORTABLE ([id number]) INDICATIONS: SHORT OF BREATH TECHNIQUE: One view of the chest was acquired. COMPARISON: [facility], CR, XR CHEST 2VW, 02/03/2017, 9:51. [facility], CR, XR CHEST 1VW (PORTABLE), 01/04/2016, 14:52. [facility], CR, XR CHEST 1VW (PORTABLE), 11/09, 9:16. FINDINGS: Surgical changes and devices: None. Lungs and pleura: No pleural effusions or pneumothorax. No change in moderate bibasilar airspace opa cities. Mediastinum: Mediastinal contours appear normal. Heart size is normal. Bones and chest wall: No suspicious bony lesions. Overlying soft tissues appear unremarkable. IMPRESSION: No change in bibasilar pneumonia. Continued plain film surveillance is recommended to ens ure resolution, and to exclude underlying or central malignancy. Dictated by: Kody Jolly M.D. on 02/06/2017 at 9:00 Approved by: Kody Jolly M.D. on 02/06/2017 at 9:01
[2017-02-06] MEDS: Piperacillin-Tazo 3.375 Gm Inj 3.375 GM in Dextrose 5% Minibag Plus 50 ML IV SCH ×2 (09:33→20:16)
[2017-02-06] MEDS: 0.9% Sodium Chloride 1,000 ML IV SCH (09:45)
--- NOTE | 2017-02-06 10:52 | NUR ---
Palliative Care Palliative Care received verbal order from Dr Du 02/06/17 to assist with goals of care. Patient is an 89 year old woman who was admitted 02/03/17 for pneumonia, weakness. Patient resides at [facility]. Lara Vargas (daughter) [phone], Kierra Cameron (daughter) [phone] Palliative Care to follow. Sumaya Levine
--- NOTE | 2017-02-06 11:01 | PCM.PNMED ---
Subjective Date of Service Feb 06, 2017 Subjective Sitting up edge of bed, no new problems, very weak. Talked with son, updated him, he is OK with palliative care consult which I think would be a very good idea. Son is working on the hearing aid. Exam Vital Signs Vital Sign - Last Date Time Temp Pulse Resp B/P Pulse Ox O2 Delivery O2 Flow Rate FiO2 02/06/17 09:33 36.5 82 18 114/59 96 Room Air Intake and Output 02/05/17 02/05/17 02/06/17 Cumulative From/Thru 15:00 23:00 07:00 02/03/17 09:14 - 02/06/17 05:59 Intake Total 1972 ml 759 ml 7565 ml Output Total 580 ml 2500 ml Balance 1392 ml 759 ml 5065 ml Intake Oral 737 ml 2609 ml IV Total 1235 ml 759 ml 4956 ml Output Urine Total 580 ml 2500 ml # Voids 9 # Bowel Movements 0 0 Exam Eyes; mychal eom intact ENMT; good hydration, nearly deaf, no sinus area tenderness CV; regular, no murmur, no edema Resp; clearier today but with persistent bronchial breath sounds in the bases and a few scattered crackles GI; soft non acute benign Skin; no overt infection or rash, dry Neuro; 2-12 intact, no motor deficits Lab and Diagnostics Result Diagram: 02/05/1762102/05/17621 Assessment & Plan 1. Profound weakness present on admission, active. -possible secondary to infections, pneumonia and/or sinusitis, chemotherapy, etc. -treat her infections, -Physical Therapy -nutritional support 2. Possible rhinosinusitis and mastoiditis present on admission, active. -Zosyn IV, day 4 -ID consult, possible unusual organism, 3. Possible pneumonia, CAP, present on admission, active. -Zosyn and Azithromycin, day #4 -CT with multifocal bibasilar patch pul opacities, this could represent an unusual organism, (fungal etc) -seen by ID, input appreciated -awaiting further infections markers and culture -if patient continues not to improve further workup could include bronchoscope which might not be a good idea considering patients relapsing cancer and palliative chemotherapy -will obtain a palliative care consult 4. Chronic relapsed chronic lymphocytic leukemia, present on admission, stable. -chemotherapy is on hold but was planned for the of this month 5. Elevated liver function tests, present on admission, active. -cmp tomorrow am. 6. Glaucoma, stable -monitor 7. Macular degeneration, partial blindness, stable. -monitor 8. Med rec. This will need to be straightened out prior to discharge. 9. Poor nutrition, present on admission, active -dietary consult 9. Disposition: Home situation. Will talk with our discharge planners to better clarify the patient's home situation as it appears she is going to need quite a bit more help. PCP = Brittney, Oncologist = Zakiya, [facility], unassisted? VTE Mechanical Devices: Intermittant Pneumatic CD Richard Du MD Feb 06, 2017 11:01
--- NOTE | 2017-02-06 14:02 | PCM.CONPAL ---
Date of Service Feb 06, 2017 Date of Hospital Admission: Feb 03, 2017 at 11:29 Date of Palliative Consult: Feb 06, 2017 Requesting Provider: Richard Du MD Reason Palliative Care Consult: Goals of Care Discussion Reason for Consultation Palliative Care received verbal order from Dr Du 02/06/17 to assist with goals of care. Patient is an 89 year old woman who was admitted 02/03/17 for pneumonia, weakness. Patient resides at [facility]. Stephanie (pt identifies Stephanie as "the one in charge of everything, call her first" ) cell: [phone]. home: [phone] Kierra Cameron (daughter) [phone] Hospital Unit @time of consult: Medical/Pediatric Care (room 3012) Palliative Care Recommendation Summary of palliative recommendations: -Symptom management (Pain/other):per Attending Blue Team, Dr. Monroe. -DPOA/Advanced Directives/POLST: 1. Currently listed as FULL CODE on EMR (02/06). Changed to DNR/DNI on 02/06 after discussion with Kierra and HCPLASHONDA Brown on phone. 2. HCPOA is Stephanie Vargas, who is in [facility] currently (lives locally part of the year). 3. Advanced directives are at patient's apt, and dtr Kierra is going over there tonight to retrieve that paperwork for the hospital and family to review. -Family/emotional support: Dr. Bautista was able to leave messages for Stephanie and Adolfo, and talk to Kierra and later Stephanie on phone today. Kierra says she believes that pt has completed paperwork that states DNR, but will contact her sister to verify. Stephanie agrees that the advanced directive has DNR, and she agrees to change in code status on our EMR. Even though patient identifies Stephanie as "the one in charge of everything, call her first," Stephanie says that all her brothers and sisters "are on the same page, " and if medical providers can't reach Stephanie for a medical decision, it is ok to talk to Kierra or Adolfo instead. (Jason is farther away and doesn't know what' s up yet, as the other siblings are still trying to reach him.) Stephanie Vargas (daughter and HCPOA) [phone], Kierra Cameron (daughter) [phone] Adolfo (son) [phone] Jason (son) in [place] Family Understanding of patient's illness: In speaking to Kierra and Stephanie today, she says family is aware that Kaya ' cancer (AML) is progressing and her treatment with Dr. Wilkerson is palliative and not curative. Kierra thinks the family already helped Mom complete advanced directives that state DNR but will contact her sister to make sure and someone in family will call us back. Dr. Bautista explained that ID specialist Dr Nichols and Dr. Monroe were wondering how aggressive family would want medical team to be in managing her rhinosinusitis. Dr. Nichols has suggested that to get the best diagnosis and specifically treat the organism would be to get a specimen by bronchoscopy to culture. He suspects the organism might be unusual and hard to treat, given that she is immunosuppressed. Kierra understands this and will spread the message to her brothers and sisters. One of the adult children will call back Pall Care Office later ton or on 02/07 with their decision. Problems: . Advanced Care Planning Address: Code status change Pt History History of Present Illness This is an 89 yo WWF admitted for profound weakness and with intent to further evaluate possible URI from rhinosinusitis or pneumonia, who is immunocompromised from palliative chemotherapy for chronic relapsed CLL. Hospital Course: Today is Hospital Day 2 and Palliative Care team is asked to consult to help pt and family come to some decisions about code status (due to the patient's advanced age and frailty, she would not survive CPR/ defibrillation without severe risk). We are also asked to interview family regarding whether they would want aggressive workup of her infection to include procedures that pose higher risk to her due to her present poor functional status. For example, if family wants to know the specific infection and how it can be managed with antibiotics, this would need a bronchoscopy to gather the specimen and culture it. Such a procedure might not be a good idea considering patients relapsing cancer and palliative chemotherapy. - Past Medical History Significant PMH Noted: 1. 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 2. Known left renal mass, presumably malignant. 3. History of bilateral breast cancer status post lumpectomy. 4. Macular degeneration, partially blind. 5. Glaucoma. 6. Diverticulosis. 7. Osteopenia. 8. T and A. Medications Current Medications: Current Medications Piperacillin Sod/ Tazobactam Sod/ Dextrose/Water 50 ml @ 12.5 mls/hr Q12 IV Last administered on 02/06/17t 09:33; Admin Dose 12.5 MLS/HR; Start 02/04/17 at 20 :30 Phenylephrine HCl 1 each DAILY RECTAL; Start 02/06/17 at 13:40; Status UNV Phenyleph/Shark Oil/Min Oil/Petrol 1 applic PRN PRN RECTAL; Start 02/06/17 at 13 :40; Status UNV Benzonatate 100 mg TID PRN PO; Start 02/06/17 at 13:40; Status UNV Scheduled Amlodipine (Amlodipine) 5 Mg Tablet 5-10 MG PO DAILY Amoxicillin/Clav K 600-43 mg Susp (Augmentin ES 600 Susp) 600 Mg/5 Ml Susp.recon 5 ML PO BID x 14 days Objective Findings Exam Vital Sign - Last Date Time Temp Pulse Resp B/P Pulse Ox O2 Delivery O2 Flow Rate FiO2 02/06/17 12:30 36.7 84 18 123/63 95 Room Air Intake and Output 02/05/17 02/05/17 02/06/17 Cumulative From/Thru 15:00 23:00 07:00 02/03/17 09:14 - 02/06/17 05:59 Intake Total 1972 ml 759 ml 7565 ml Output Total 580 ml 2500 ml Balance 1392 ml 759 ml 5065 ml Intake Oral 737 ml 2609 ml IV Total 1235 ml 759 ml 4956 ml Output Urine Total 580 ml 2500 ml # Voids 9 # Bowel Movements 0 0 Objective General: thin, frail elderly lady sitting at side of her bed HEENT: Head is nontraumatic, normocephalic with bilateral [place] wasting.Very [place] (wears bilateral hearing aides, which help), 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 Extremities: no edema Skin: pale, cool to touch N/M: moves all extremities equally, generalized weakness of limbs, able to help get back in bed but needs 1 person assist Neuro: nonfocal except for hearing and vision. no gross motor defects. Lab/Diagnostics Lab and Diagnostics 02/05/17621 Include white count which is improved from 12,000 on admission to 6000. Her creatinine 0.36. CRP 8. Hepatitis C antibody is negative. Respiratory viral PCR negative and urine pneumococcal antigen negative. Blood cultures remain negative. Chest CT 4/5: shows bilateral basilar patchy opacities consistent with either aspiration pneumonia or some other form of bilateral pneumonia. 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 Time spent Total time 70 minutes; >50% face to face with patient and/or family, providing counselling regarding plans and recommendations, and in care coordination with his/her medical teams. An additional 30 minutes was spent in discussing advanced care planning and code status with HCPOA. Fouzia Bautista MD Feb 06, 2017 14:02 02/05/17621 Include white count which is improved from 12,000 on admission to 6000. Her creatinine 0.36. CRP 8. Hepatitis C antibody is negative. Respiratory viral PCR negative and urine pneumococcal antigen negative. Blood cultures remain negative. Chest CT 4/5: shows bilateral basilar patchy opacities consistent with either aspiration pneumonia or some other form of bilateral pneumonia. 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 Time spent Total time 70 minutes; >50% face to face with patient and/or family, providing counselling regarding plans and recommendations, and in care coordination with his/her medical teams. Fouzia Bautista MD Feb 06, 2017 14:02
[2017-02-06] MEDS: Phenylephrine-Mineral Oil 28 Gm Ointment RECTAL PRN (15:03)
[2017-02-06] MEDS: Phenylephrine 0.25% Rectal Suppository RECTAL SCH (15:04)
--- NOTE | 2017-02-06 15:24 | NUR ---
Hemorrhoids/Med Rec. Pt on BSC having a BM this AM and c/o of a lot of pressure and pain from rectum. Per shift report, pt had a small & hard BM. Assistance provided with rectal stimulation, effective by large, loose stool seconds later. Some blood streaking noted. Provider notified and orders recd. Pt now states she takes Metamucil every night along with prune juice. Scheduled order now recd for Metamucil HS. Per Provider orders, primary RN called pts pharmacy and Drs office to confirm medications. Per Jefferson bailey Pharmacist at pts pharmacy: Pt filled Augmentin on 01/31 for cough, Leukeran 20mg at infusion times, Amlodipine 5-10mg daily, stopped plavix in June. Provider notified. Pt now comfortable and resting. Will continue to monitor.
--- NOTE | 2017-02-06 15:42 | PROG NOTE ---
[address] [address] PROGRESS NOTE PATIENT: ANUPAMA HOBSON : 1925 MR#: [id number] ADMIT: 02/03/2017 JOB ID: [id number] DATE: 02/06/2017 INFECTIOUS DISEASE FOLLOW UP NOTE: REASON FOR FOLLOW UP: Sinusitis with pulmonary infiltrates. INTERVAL HISTORY: Recall this is an 89-year-old woman with CLL who was admitted with cough and evidence by CT and by chest x-ray of sinusitis as well as pulmonary infiltrates. She was empirically started on azithromycin and Zosyn and her cough is much improved. She denies sinus pain, cough or shortness of breath today and her main problem seems to be pain with defecation. PHYSICAL EXAMINATION: Reveals a frail, elderly woman in no acute distress. She is afebrile. Temperature 36.7, pulse 84, respiratory rate 18, blood pressure 123/63, saturating well on room air. She is awake and alert, and seems to be hearing better today. Her oral cavity unremarkable. Lungs reasonably clear. Sinuses nontender. Abdomen negative. Perirectal examination shows large prolapsed and quite angry appearing hemorrhoids. LABORATORIES: Include white count which has dropped to normal 6900. Creatinine 0.36. CRP is 8. Procalcitonin has dropped to 0.13. Cryptococcal antigen is pending as is Aspergillus antibodies. Cultures including blood cultures and a respiratory viral panel negative. IMAGING: Yesterday showed continued bibasilar infiltrates. The CT of the head had earlier shown sinusitis. IMPRESSION: This patient seems to be improving on her current regimen of azithro and Zosyn. I think she probably has some degree of bacterial pneumonia which perhaps produced her initial leukocytosis as well as cough but she is having a very brisk in Rapid response. How severe her sinusitis is remains to be determined, but it is also certainly going to be addressed with these antibiotics. RECOMMENDATIONS: 1. Continue with azithro and Zosyn. 2. We await our pending crypto antigen and other studies. 3. If her infiltrates fail to improve after a trial of these antibiotics and a period of observation, bronchoscopy might be considered looking for a more indolent fungal or mycobacterial cause of infiltrate in this elderly CLL patient but that may actually be too aggressive given her overall clinical status. 4. We prescribed some Preparation H as topical therapy for her very unpleasant looking hemorrhoids. Note that I will be out of town the next three days but I can be reached by telephone and Dr. Eaton will be coming by and looking at patient's for me tomorrow.
[2017-02-06] MEDS ORDERED: PSYL0.4C2 PO (16:44)
[2017-02-06] MEDS ORDERED: PSYL660P17 PO (16:44)
[2017-02-07] MEDS: Heparin 5,000 Unit/mL Inj SUBQ SCH ×3 (00:48→16:58)
[2017-02-07] MEDS: 0.9% Sodium Chloride 1,000 ML IV SCH (02:55)
[2017-02-07 04:38] VITALS: BP 129/64; PULSE 64; RESP 18; O2SAT 96
--- NOTE | 2017-02-07 04:47 | NUR ---
Weakness/activity Patient has remained weak, unchanged from night before. Up to BSC with assistance about every 1.5-2 hours. Bladder scan showed 214 ml, patient voiding between 50-200 ml with each void. Denies pain and shortness of breath with activity. NS infusing at 60 ml/hr as ordered. Bed alarm on for safety, call light within reach, and intentional rounding in place.
[2017-02-07] MEDS: Azithromycin Inj 500 MG in Dextrose 5% w/Vial Mate 250 ML IV SCH (08:52)
[2017-02-07 09:01] VITALS: BP 139/65; PULSE 78; RESP 19; O2SAT 97
--- NOTE | 2017-02-07 09:02 | PCM.PALLBR ---
Palliative Care Recommendation Summary of palliative recommendations: -Symptom management (Pain/other):per Attending Blue Team, Dr. Monroe. -DPOA/Advanced Directives/POLST: 1. Currently listed as FULL CODE on EMR (02/06). Changed to DNR/DNI on 02/06 after discussion with Kierra and HCPOA Stephanie on phone. 2. HCPOA is Stephanie Vargas, who is in [facility] currently (livesin [facility] part of the year). 3. Advanced directives have been done in past, but dtr Kierra went to her apt to retrieve that paperwork for the hospital and couldn't find it. 4. Today Stephanie and Kierra want their brother Adolfo to come to hospital as family senior outside sales representative and be present as palliative provider walks Mrs. Soto though a POLST. 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 Wilkerson is palliative and not curative. On 02/06, Dr. Bautista counseled Stephanie and Kierra (over the phone) that ID specialist Dr Nichols and Dr. Monroe were wondering how aggressive family would want medical team to be in managing her rhinosinusitis. Dr. Nichols has suggested that to get the best diagnosis and specifically treat the organism would be to get a specimen by bronchoscopy to culture. He suspects the organism might be unusual and hard to treat, given that she is immunosuppressed. Kierra, the HCPOA, understands this and spread the message to her brothers and sisters. On the evening of 02/06, they talked to their mother over the speakerphone last night and she has told them she does not want invasive studies or "heroics." Patient/Family Goals: Family is in agreement that Mom wants to get help for the infection but without having any procedures. In other words, no bronchoscopy. Family believes she needs a DNR/DNI/limited interventions such as IV antibiotics and IV medications and checking labs--but no invasive procedures. Family/emotional support: Excellent. Four children all involved and communicate well with each other and with their mother. Son Adolfo has visited each day several times during day. Other daughter Kierra has been coming in at night to visit. (Stephanie in [place] right now and speaks to her mother on phone). Even though patient identifies Stephanie as "the one in charge of everything, call her first," Stephanie says that all her brothers and sisters "are on the same page, " and if medical providers can't reach Stephanie for a medical decision, it is ok to talk to Kierra or Adolfo instead. (Jason is farther away and doesn't know what' s up yet, as the other siblings are still trying to reach him.) Stephanie Vargas (daughter and HCPOA) [phone], Kierra Cameron (daughter) [phone] Adolfo (son) [phone] Jason (son) in [place] NOTE: Dr. Bautista unable to complete POLST with pt and adult son Adolfo on Friday. We will try to complete POLST with family on FridayFebruary 10. (Dr. Yaquelin Reyes will cover my patients Friday). Problems: End of Life Preferences DO NOT RESUSCITATE/DO NOT INTUBATE/limited interventions Disposition To be determined Resuscitation Status Resuscitation Status: DNR/DNI:Do Not Resuscitate/Intubate POLST Updates/Changes Previous POLST?: No . Advanced Care Planning Address: POLST Total time 35 minutes; >50% face to face with patient and/or family, providing counselling regarding plans and recommendations, and in care coordination with his/her medical teams. I also spent an additional [ ] minutes counseling for advanced care planning with the patient/the patients family/the surrogate decision maker. Palliative Brief Note Date of Service Feb 07, 2017 . Patient Identification This is an 89 yo WWF admitted for profound weakness and with intent to further evaluate possible URI from rhinosinusitis or pneumonia, who is immunocompromised from palliative chemotherapy for chronic relapsed CLL. Hospital Course: Today is Hospital Day 3. Palliative Care team asked on 02/06 to consult to help pt and family come to some decisions about code status (due to the patient's advanced age and frailty, she would not survive CPR/ defibrillation without severe risk). We are also asked to interview family regarding whether they would want aggressive workup of her infection to include procedures that pose higher risk to her due to her present poor functional status. For example, if family wants to know the specific infection and how it can be managed with antibiotics, this would need a bronchoscopy to gather the specimen and culture it. Such a procedure might not be a good idea considering patients relapsing cancer and palliative chemotherapy. Subjective: Mrs. Soto says she has no pain, and does not remember what she and her family talked about last night, but remembers that she spoke to both of her daughters over the phone. She says Adolfo was here, but had to leave for an appointment. She can't remember if he is coming back. Exam: General: thin, frail elderly lady sitting up in her bed at almost 90degrees with over the bed table, eating her breakfast. 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 Extremities: no edema Skin: pale, cool to touch N/M: moves all extremities equally, generalized weakness of limbs, needs 1 person assist for transfers in and out of bed, to [facility]. Neuro: nonfocal except for hearing and vision. no gross motor defects. Psych: calm, pleasant javiereanor Fouzia Bautista MD Feb 07, 2017 09:02 Madan Samano MD Feb 07, 2017 15:23
[2017-02-07] MEDS: Piperacillin-Tazo 3.375 Gm Inj 3.375 GM in Dextrose 5% Minibag Plus 50 ML IV SCH ×2 (10:11→20:42)
--- NOTE | 2017-02-07 12:19 | PCM.PNMED ---
Subjective Date of Service Feb 07, 2017 Subjective nO PROBLEMS OVERNIGHT, NURSING STAFF SAYS PATIENT IS STRONGER TODAY AND PATIENT TELLS ME THAT SHE FEELS STRONGER, UP EATING IN A CHAIR. Exam Vital Signs Vital Sign - Last Date Time Temp Pulse Resp B/P Pulse Ox O2 Delivery O2 Flow Rate FiO2 02/07/17 09:49 Room Air 02/07/17 09:01 36.9 78 19 139/65 97 Intake and Output 02/06/17 02/06/17 02/07/17 Cumulative From/Thru 15:00 23:00 07:00 02/03/17 09:14 - 02/07/17 05:29 Intake Total 100 ml 1681 ml 772 ml 58102 ml Output Total 675 ml 825 ml 4000 ml Balance -575 ml 856 ml 772 ml 6118 ml Intake Oral 100 ml 718 ml 3427 ml IV Total 963 ml 772 ml 6691 ml Output Urine Total 675 ml 3175 ml Urine/Stool Mix 825 ml 825 ml # Voids 9 # Bowel Movements 1 5 6 Exam Eyes; mychal eom intact ENMT; good hydration, nearly deaf, no sinus area tenderness CV; regular, no murmur, no edema, no JVD Resp; clearier today but with persistent bronchial breath sounds in the bases and a few scattered crackles GI; soft non acute benign Skin; no overt infection or rash, dry Neuro; 2-12 intact, no motor deficits Lab and Diagnostics Result Diagram: 02/05/17 0622 02/07/17 0522 Assessment & Plan 1. Profound weakness present on admission, active. -possible secondary to infections, pneumonia and/or sinusitis, chemotherapy, etc. -treat her infections, -Physical Therapy -nutritional support 2. Possible rhinosinusitis and mastoiditis present on admission, active. -Zosyn IV, day #5 -ID consult, possible unusual organism, 3. Possible pneumonia, CAP, present on admission, active. -Zosyn and Azithromycin, day #5 -CT with multifocal bibasilar patch pul opacities, this could represent an unusual organism, (fungal etc) -seen by ID, input appreciated -awaiting further infections markers and culture -if patient continues not to improve further workup could include bronchoscope which might not be a good idea considering patients relapsing cancer and palliative chemotherapy -will obtain a palliative care consult 4- Palliative Care consult' -code changed to DNR/DNI, -they are still discussing with patient 5. Chronic relapsed chronic lymphocytic leukemia, present on admission, stable. -chemotherapy is on hold but was planned for the 6th of this month 6. Elevated liver function tests, present on admission, active. -cmp tomorrow am. 7. Glaucoma, stable -monitor 8. Macular degeneration, partial blindness, stable. -monitor 9. Med rec. This will need to be straightened out prior to discharge. 10. Poor nutrition, present on admission, active -dietary consult 11. Disposition: Home situation. Will talk with our discharge planners to better clarify the patient's home situation as it appears she is going to need quite a bit more help. PCP = Brittney, Oncologist = christopher Sigala [facility], unassisted? VTE Mechanical Devices: Intermittant Pneumatic CD Richard Du MD Feb 07, 2017 12:19
[2017-02-07 12:54] VITALS: BP 139/74; PULSE 81; RESP 18; O2SAT 97
--- NOTE | 2017-02-07 15:16 | NUR ---
NUTRITION FOLLOW-UP: ASSESS: 89 YO female admitted for weakness secondary to infections, pneumonia and or sinusitis. Consult for cachexia completed on 02/04. Pt states today that she feels stronger and po intake is charted at 100% today for 1 meal, so po intake may be improving. 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 LABS: Reviewed. Alb 2.5. MEDS: Reviewed. GI: BM x 3 today. CURRENT WT: 37.7 kg. UBW from 03/2013-02/2015 was 43.5-47.8 kg. Wt has slowly declined since February 2015 with pt losing approx. 21% of body weight over the past 2 years. DIET: General, + Vanilla ensure all trays. PO 25-100% EST. NEEDS (Cancer cachexia): 2611-1367 kcals (30-40 kcals/kg BW), 55-75 g protein (1.5-2.0 g/kg BW) NUTRITION DIAGNOSIS: 1.) Malnutrition related to physiological causes increasing nutrient needs due to illness as evidenced by severe wt loss, BMI of 15.2 NUTRITION INTERVENTION: 1.) Continue to send vanilla ensure TID to help encourage weight gain. MONITOR / EVAL: PO intake, labs, nutritional status. Follow per high nutritional risk guidelines.
--- NOTE | 2017-02-07 16:11 | NUR ---
Social Work: Continued d/c planning Data: Pt is on day 4 of hospitalization. EMR reviewed. Pt discussed in rounds. MD states pt likely to d/c in greater than 2 days. Palliative care met with pt and family and have determined to limit interventions but pt is not on comfort care at this time, please see Palliative note for further detail. EXCAVATION LABORER will continue to follow. Assessment: Pt who is independent at baseline. Plan: Pt will d/c to [facility] pending [facility] authorization once stable for d/c. EXCAVATION LABORER to follow up with family regarding back up plan if pt progresses past the point of the [facility] authorization. EXCAVATION LABORER will continue to follow. KASSIE Sieegl
[2017-02-07 16:38] VITALS: BP 131/76; PULSE 77; RESP 18; O2SAT 94
[2017-02-07] MEDS: Phenylephrine 0.25% Rectal Suppository RECTAL SCH (16:58)
[2017-02-07 20:15] VITALS: BP 144/69; PULSE 79; RESP 18; O2SAT 95
[2017-02-08] MEDS: Heparin 5,000 Unit/mL Inj SUBQ SCH ×3 (00:30→17:29)
[2017-02-08 04:42] VITALS: BP 159/69; PULSE 69; RESP 18; O2SAT 97
--- NOTE | 2017-02-08 05:05 | NUR ---
Nausea Pt had some nausea in the late evening, given prune juice with saltine crackers. Had BM and then slept rest of the night without complaints. Mepilex applied to elbow as it was very bony.
[2017-02-08] MEDS: Azithromycin Inj 500 MG in Dextrose 5% w/Vial Mate 250 ML IV SCH ×2 (08:23→10:03)
--- NOTE | 2017-02-08 09:15 | NUR ---
Pt appears confused and not appropriate to sign PAZ. SW contacted dtr Lara who verbally signed PAZ. KASSIE Marcus
[2017-02-08 09:24] VITALS: BP 135/75; PULSE 87; RESP 19; O2SAT 94
[2017-02-08] MEDS: Phenylephrine 0.25% Rectal Suppository RECTAL SCH (10:03)
[2017-02-08] MEDS: Piperacillin-Tazo 3.375 Gm Inj 3.375 GM in Dextrose 5% Minibag Plus 50 ML IV SCH ×2 (11:18→19:55)
[2017-02-08 13:41] VITALS: BP 129/68; PULSE 64; RESP 18; O2SAT 99
--- NOTE | 2017-02-08 14:30 | PCM.PNMED ---
Subjective Date of Service Feb 08, 2017 Subjective No problems overnight, O2 sats 99% on RA. Exam Vital Signs Vital Sign - Last Date Time Temp Pulse Resp B/P Pulse Ox O2 Delivery O2 Flow Rate FiO2 02/08/17 13:41 36.4 64 18 129/68 99 Room Air Intake and Output 02/07/17 02/07/17 02/08/17 Cumulative From/Thru 15:00 23:00 07:00 02/03/17 09:14 - 02/08/17 05:29 Intake Total 300 ml 1578 ml 420 ml 97540 ml Output Total 1300 ml 1050 ml 1200 ml 7550 ml Balance -1000 ml 528 ml -780 ml 4866 ml Intake Oral 300 ml 822 ml 420 ml 4969 ml IV Total 756 ml 7447 ml Output Urine Total 1300 ml 1050 ml 1200 ml 6725 ml Urine/Stool Mix 825 ml # Voids 1 10 # Bowel Movements 3 4 1 14 Exam Eyes; mychal eom intact ENMT; good hydration, nearly deaf, no sinus area tenderness CV; regular, no murmur, no edema, no JVD Resp; persists pretty clear, but with persistent bronchial breath sounds in the bases and a few scattered crackles GI; soft non acute benign Skin; no overt infection or rash, dry Neuro; 2-12 intact, no motor deficits Lab and Diagnostics Result Diagram: 02/05/17 0622 02/07/17 0522 Assessment & Plan 1. Profound weakness present on admission, active. -possible secondary to infections, pneumonia and/or sinusitis, chemotherapy, etc. -treat her infections, -Physical Therapy -nutritional support 2. Possible rhinosinusitis and mastoiditis present on admission, active. -Zosyn IV, day #6 -ID consult, possible unusual organism, 3. Possible pneumonia, CAP, present on admission, active. -Zosyn and Azithromycin, day #6 -CT with multifocal bibasilar patch pul opacities, this could represent an unusual organism, (fungal etc) -seen by ID, input appreciated -awaiting further infections markers and culture -Care goals set, patient and family want conservative treatment for this, no invasive procedures but trial of antibiotics and meds OK 4- Palliative Care consult' -code changed to DNR/DNI, -thank you 5. Chronic relapsed chronic lymphocytic leukemia, present on admission, stable. -chemotherapy is on hold but was planned for the 6th of this month 6. Elevated liver function tests, present on admission, active. -pretty much back to normal 7. Glaucoma, stable -monitor 8. Macular degeneration, partial blindness, stable. -monitor 9. Med rec. This will need to be straightened out prior to discharge. 10. Poor nutrition, present on admission, active -dietary consult 11. Disposition: Home situation. Will talk with our discharge planners to better clarify the patient's home situation as it appears she is going to need quite a bit more help. PCP = Brittney, Oncologist = Zakiya [facility], unassisted -PLAN; dc to [facility] when stable. VTE Mechanical Devices: Intermittant Pneumatic CD Resuscitation Status: DNR/DNI:Do Not Resuscitate/Intubate Limited Interventions: Intubation w Richard Alston MD Feb 08, 2017 14:30
--- NOTE | 2017-02-08 16:26 | NUR ---
Activity/mentation Pt. active today, using BSC frequently and voiding small amounts at a time. Has good strength and is able to pull her self up in bed and reposition independently. Pt. has been AOX3. today, but mildly forgetful. She also became a big emotional this afternoon, unable to state exactly why, but said she did not feel well. She would not specify what was wrong but was frequently asking for her friend to come keep her company. I called her daughter who was able to talk with her on the phone extensively, and pt. said she felt better after this conversation.
[2017-02-08 19:56] VITALS: BP 151/82; PULSE 85; RESP 16; O2SAT 95
[2017-02-08] MEDS: Phenylephrine-Mineral Oil 28 Gm Ointment RECTAL PRN (19:56)
--- NOTE | 2017-02-08 23:34 | NUR ---
bladder scan PT has voided 4 times since start of noc shift. Voiding tiny amounts of urine. Bladder scan done an there are only 18ml noted. Will CTM.
[2017-02-09] MEDS: Heparin 5,000 Unit/mL Inj SUBQ SCH ×3 (00:52→16:30)
[2017-02-09 03:48] LABS: COLOR,URINE STRAW (YELLOW)
[2017-02-09 03:49] LABS: APPEARANCE,URINE CLEAR (CLEAR,HAZY); OCCULT BLOOD,URINE NEGATIVE (NEGATIVE); PH,URINE 7.5 (5.0-8.0); UROBILINOGEN,URINE NORMAL (NORMAL)
--- NOTE | 2017-02-09 05:57 | NUR ---
NOC PT was tearful at start of the shift because her family had "stepped out" while she was using BSC and then decided to go home without telling pt. She was upset and said "I need to have someone here with me. Call my son for me." We called her son, but there was no answer and VM was full. PT denies any pain except for tenderness at her IV site. OFfered to replace IV for her in a more suitable place, but she refused 3 times. PT has been up to the BSC literally every 20 minutes through the entire night. Bladder scan was negative and additional UA sent off was negative. Urine is pale and clear. Her frequency is of unknown etiology. PT wears briefs as well, but has been continent. V/S WNL. Receiving IV zosyn. Lungs are CTA. Afebrile and ORA. WIll CTM.
[2017-02-09 06:04] VITALS: BP 169/81; PULSE 81; RESP 17; O2SAT 93
--- NOTE | 2017-02-09 07:27 | DRSVH ---
PROCEDURE: X-RAY CHEST ONE VIEW, PORTABLE ([id number]) INDICATIONS: SHORTNESS OF BREATH TECHNIQUE: One view of the chest was acquired. COMPARISON: [facility], CT, CT CHEST WO CON, 02/04/2017, 14:01. [facility], CR, XR CHEST 2VW, 12/25/2016, 12:30. [facility], CR, XR CHEST 1VW (PORTABLE), 02/06/2017, 5:45. FINDINGS: Surgical changes and devices: None. Lungs and pleura: No pleural effusions or pneumothorax. Diffuse ill-defined interstitial disease and scarring. Bibasilar consolidation is present. There are trace bilateral pleural effusions. Nodular opacity projects in the left upper lobe measuring 7 mm although no definite correlate seen on the rec ent chest CT dated 02/04/17. Mediastinum: Cardiac silhouette and mediastinal contours are stable Bones and chest wall: No suspicious bony lesions. Overlying soft tissues appear unremarkable. IMPRESSION: Bibasilar consolidation and trace bilateral pleural effusions. Recommend clinical correlation. Nodular density projecting in the left upper lobe of unclear etiology or significance. Recommend foll owup with PA and lateral chest radiographs in 3 months. Dictated by: Jos Choe M.D. on 02/09/2017 at 7:21 Approved by: Jos Choe M.D. on 02/09/2017 at 7:25
--- NOTE | 2017-02-09 09:28 | PCM.PNMED ---
Subjective Date of Service Feb 09, 2017 Subjective Continue to improve slowly. Still awaiting results of infectious serology markers. No fever, seems to be responding to antibiotics, CXR with persistent bibasilar infiltrates. Patient has no new complaints today. Exam Vital Signs Vital Sign - Last Date Time Temp Pulse Resp B/P Pulse Ox O2 Delivery O2 Flow Rate FiO2 02/09/17 06:04 36.6 81 17 169/81 93 Room Air Intake and Output 02/08/17 02/08/17 02/09/17 Cumulative From/Thru 15:00 23:00 07:00 02/03/17 09:14 - 02/09/17 06:04 Intake Total 1304 ml 300 ml 25269 ml Output Total 750 ml 700 ml 9000 ml Balance 554 ml -400 ml 5020 ml Intake Oral 922 ml 300 ml 6191 ml IV Total 382 ml 7829 ml Output Urine Total 450 ml 700 ml 7875 ml Urine/Stool Mix 300 ml 1125 ml # Voids 10 # Bowel Movements 7 11 24 Exam Eyes; mychal eom intact ENMT; good hydration, nearly deaf, no sinus area tenderness noted CV; regular, no murmur, no edema, no JVD Resp; persists pretty clear, but with persistent bronchial breath sounds in the bases and a few scattered crackles GI; soft, non acute benign, non tender Skin; no overt infection or rash, dry Neuro; 2-12 intact, no motor deficits Lab and Diagnostics Result Diagram: 02/05/17 0622 02/07/17 0522 Assessment & Plan 1. Profound weakness present on admission, slowly improving. -possible secondary to infections, pneumonia and/or sinusitis, chemotherapy, etc. -treat her infections, -Physical Therapy -nutritional support 2. Possible rhinosinusitis and mastoiditis present on admission, active. -Zosyn IV, day #7 -ID consult, possible unusual organism, 3. Possible pneumonia, CAP, present on admission, active. -Zosyn and Azithromycin, day #7 -CT with multifocal bibasilar patch pul opacities, this could represent an unusual organism, (fungal etc) -seen by ID, input appreciated -awaiting further infections markers and culture -Care goals set, patient and family want conservative treatment for this, no invasive procedures but trial of antibiotics and meds OK -Consider discontinuing Zosyn after today, will have completed 7-8 days 4- Palliative Care consult' -code changed to DNR/DNI, -thank you 5. Chronic relapsed chronic lymphocytic leukemia, present on admission, stable. -chemotherapy is on hold but was planned for the of this month 6. Elevated liver function tests, present on admission, active. -pretty much back to normal 7. Glaucoma, stable -monitor 8. Macular degeneration, partial blindness, stable. -monitor 9. Med rec. This will need to be straightened out prior to discharge. 10. Poor nutrition, present on admission, active -dietary consult 11. Disposition: Home situation. Will talk with our discharge planners to better clarify the patient's home situation as it appears she is going to need quite a bit more help. PCP = Brittney, Oncologist = christopher Sigala [facility], unassisted -PLAN; dc to [facility] possible Friday, [facility] needs to evaluate patient tomorrow . VTE Mechanical Devices: Intermittant Pneumatic CD Resuscitation Status: DNR/DNI:Do Not Resuscitate/Intubate Limited Interventions: Intubation w [facility] Richard Conley MD Feb 09, 2017 09:28
[2017-02-09] MEDS: Azithromycin Inj 500 MG in Dextrose 5% w/Vial Mate 250 ML IV SCH (10:03)
[2017-02-09] MEDS: Phenylephrine 0.25% Rectal Suppository RECTAL SCH (10:06)
[2017-02-09] MEDS: Piperacillin-Tazo 3.375 Gm Inj 3.375 GM in Dextrose 5% Minibag Plus 50 ML IV SCH ×2 (12:04→21:05)
--- NOTE | 2017-02-09 14:07 | NUR ---
Social Work: Readiness for Discharge Data: Pt is on day 6 of hospitalization. EMR reviewed. Pt discussed in rounds. Pt is likely to discharge tomorrow per morning rounds.Palliative care met with pt and family and have determined to limit interventions but pt is not on comfort care at this time, please see Palliative note for further detail. Pt will discharge to [facility] pending [facility] Authorization with Dr. Steve to follow. FISH TENDER will continue to follow for needs Assessment: Pt who would benefit from SNF Plan: Pt will d/c to [facility] pending [facility] authorization once stable for d/c. FISH TENDER will continue to follow. KASSIE Marcus
[2017-02-09 14:20] VITALS: BP 129/64; PULSE 74; RESP 16; O2SAT 98
--- NOTE | 2017-02-09 19:02 | NUR ---
Activity: Patient uses call light or radha out " Help me " to request toileting. Patient has sat in her chairs for all meals. No new issues this shift.
[2017-02-09 20:12] VITALS: BP 136/72; PULSE 82; RESP 18; O2SAT 94
[2017-02-10] MEDS: Heparin 5,000 Unit/mL Inj SUBQ SCH ×3 (00:13→16:28)
--- NOTE | 2017-02-10 04:59 | NUR ---
Toileting Continues to need to be assisted with toileting frequently, very small amounts of urine each time; adequate urine output overall. Pt is uncertain more than she is weak; able to move well in bed and to chair and BSC. Bed alarm engaged for safety.
[2017-02-10 06:12] VITALS: BP 130/64; PULSE 89; RESP 16; O2SAT 95
[2017-02-10] MEDS: Azithromycin Inj 500 MG in Dextrose 5% w/Vial Mate 250 ML IV SCH (08:23)
[2017-02-10 09:36] LABS: EOSINOPHILS % (AUTO) 1.4 % (0-5)
[2017-02-10 09:39] LABS: BASOPHILS % (AUTO) 0.5 % (0-3); MONOCYTES % (AUTO) 11.3 % (4-12); Mean Corpuscular Hemoglobin 28.8 pg (27.0-35.0); Mean Corpuscular Volume 89.4 fL (81-100); NEUTROPHILS % (AUTO) 46.1 % (40-74); Platelet Count 436 bil/L (150-400)
[2017-02-10 10:05] LABS: Magnesium 2.2 mg/dL (1.6-2.6)
[2017-02-10] MEDS: Piperacillin-Tazo 3.375 Gm Inj 3.375 GM in Dextrose 5% Minibag Plus 50 ML IV SCH ×2 (10:32→21:31)
[2017-02-10] MEDS: Phenylephrine 0.25% Rectal Suppository RECTAL SCH (10:35)
--- NOTE | 2017-02-10 10:54 | NUR ---
PAZ signed @ 1020AM
--- NOTE | 2017-02-10 12:03 | PCM.DIMED ---
Discharge Instructions Date of Service Feb 10, 2017 Dates of Hospitalization Feb 03, 2017 at 11:29 Discharge Diagnosis Discharge Diagnosis 1. Profound weakness present on admission, slowly improving. -possible secondary to infections, pneumonia and/or sinusitis 2. Possible rhinosinusitis and mastoiditis present on admission, post treatment with IV Antibiotics 3. Possible pneumonia, CAP, present on admission - post treatment with IV Zosyn and Azithromycin 4. Chronic relapsed chronic lymphocytic leukemia, present on admission, stable. - will need further followup with oncology as outpatient 5. Elevated liver function tests, present on admission, resolved. 6. Glaucoma, stable 7. Macular degeneration, partial blindness, stable. Diet Low fat, Low Sodium, Heart Healthy Activity No restrictions (as tolerated per physical therapy) Patient Instructions Follow-up plan 1. Followup with primary care provider (Dr. Lugo) in 3-7 days 2. Followup with your oncologist (Dr. Wilkerson) in 1-2 weeks or as previously planned Follow-up Provider: Riaz Lugo MD Provider: Evy Wilkerson MD, Masoud Feb 10, 2017 12:03
--- NOTE | 2017-02-10 12:23 | PCM.PALLBR ---
Palliative Care Recommendation Summary of palliative recommendations: 02/10/17-Patient understands her weakness and limitations. Good historian. Recalls discussion re code status-POLST is completed and signed by pt-DNR, limited intervention-OK antibiotics and IV fluids but NO feeding tube. 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 Renal mass-stable since 2012-not an issue. Believe no further follow up is indicated. Urinary freq with hx RADHA-will try oxybutynin but believe she should have a minimal pelvic to make sure not due to mass effect. -Done and no masses appreciate-reassuring. Disposition-plan for now is [facility] tomorrow. Will assess oxybut before discharge. Hx RADHA without known recurrence. Reviewed this and results of the pelvic with her daughter Kierra who relayed it to Lara. Will try the oxybutynin and adjust. Warned of dry mouth and potential for confusion in the elderly. -Symptom management (Pain/other):per Attending Blue Team, Dr. Monroe. -DPOA/Advanced Directives/POLST: 1. Currently listed as FULL CODE on EMR (02/06). Changed to DNR/DNI on 02/06 after discussion with Kierra and HCPOA Stephanie on phone. 2. HCPOA is Stephanie Vargas, who is in [facility] currently ([facility] part of the year). 3. Advanced directives have been done in past, but dtr Kierra went to her apt to retrieve that paperwork for the hospital and couldn't find it. 4. Today Stephanie and Kierra want their brother Daolfo to come to hospital as family contact center representative and be present as palliative provider walks Mrs. Soto though a POLST. 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 Wilkerson is palliative and not curative. On 02/06, Dr. Bautista counseled Stephanie and Kierra (over the phone) that ID specialist Dr Nichols and Dr. Monroe were wondering how aggressive family would want medical team to be in managing her rhinosinusitis. Dr. Nichols has suggested that to get the best diagnosis and specifically treat the organism would be to get a specimen by bronchoscopy to culture. He suspects the organism might be unusual and hard to treat, given that she is immunosuppressed. Kierra, the HCPOA, understands this and spread the message to her brothers and sisters. On the evening of 02/06, they talked to their mother over the speakerphone last night and she has told them she does not want invasive studies or "heroics." Patient/Family Goals: Family is in agreement that Mom wants to get help for the infection but without having any procedures. In other words, no bronchoscopy. Family believes she needs a DNR/DNI/limited interventions such as IV antibiotics and IV medications and checking labs--but no invasive procedures. Family/emotional support: Excellent. Four children all involved and communicate well with each other and with their mother. Son Adolfo has visited each day several times during day. Other daughter Kierra has been coming in at night to visit. (Stephanie in [place] right now and speaks to her mother on phone). Even though patient identifies Stephanie as "the one in charge of everything, call her first," Stephanie says that all her brothers and sisters "are on the same page, " and if medical providers can't reach Stephanie for a medical decision, it is ok to talk to Kierra or Adolfo instead. (Jason is farther away and doesn't know what' s up yet, as the other siblings are still trying to reach him.) Stephanie Vargas (daughter and HCPOA) [phone], Kierra Godfreytony (daughter) [phone] Adolfo (son) [phone] Jason (son) in [place] Problems: End of Life Preferences DO NOT RESUSCITATE/DO NOT INTUBATE/limited interventions Disposition To be determined Resuscitation Status Resuscitation Status: DNR/DNI:Do Not Resuscitate/Intubate Limited Interventions: Medications and IV Fluid POLST Updates/Changes Previous POLST?: Yes Artificially Admin Nutrition: No Artifical Nutrition by Tube POLST Discussed with: Patient POLST Review Outcome: New Form Completed . Advanced Care Planning Address: POLST Pain: Mild Symptom management: Depression, Anxiety, Dyspnea, Pain Total time 40 minutes; >50% face to face with patient and/or family, providing counselling regarding plans and recommendations, and in care coordination with his/her medical teams. Including review of records including OP records, completion of POLST and pelvic exam I also spent an additional 20 minutes counseling for advanced care planning with the patient/the patients family/the surrogate decision maker. Palliative Brief Note Date of Service Feb 10, 2017 . 89 yo female well known to me as PCP now admitted with weakness and pneumonia- treated and improved. Still some cough.Has been living at [facility] but she thinks she needs more assistance due to urinary sx. Main complaint is urinary freq-ie Q20 min which exhausts her and disturbs her sleep. She has been followed by urology but for a renal mass since 2012 which has been stable but the urinary freq has not been addressed. She has a hx of vulvar CA treated with partial vulvectomy in 2012, hx breast CA , CLL-chronic, multiple skin CA's-SCCA, BCCA. States she was offered a surg for her urinary freq but declined. Constipation-chronic. O: ORUTSARARMIUT but mentally astute and decisional.Thin to nearly cachectic moist cough, no choking, coughing with eating including water lungs- rales at bases. COR- RR Neuro-able to stand with assist, mentation as above, grasp sym Bimanual pelvic-externalwnl without lesion or masses or pallor introitus is slightly tight but no masses. Moderately uncomfortable intravaginally. minimal distention of bladder despite sense of urgency to urinate prior to exam. no uterus palpated but suboptimal exam due to discomfort Yaquelin Reyes MD Feb 10, 2017 12:23
[2017-02-10] MEDS ORDERED: OXYB5TAB10 PO (12:49)
--- NOTE | 2017-02-10 12:53 | NUR ---
Left message for Isha Almaraz CM at [facility] and asked for her to review patient for transfer to SNF today, patient has been accepted at [facility] with Dr. Steve to follow Addendum: 02/10/17 at 1605 by RALF MAY CM [facility] is denying patient for transfer to SNF, updated FOOD SERVICE AGENT and patient at bedside. FOOD SERVICE AGENT called and updated patient's daughter and plan for disposition is evolving. Daughter is starting appeal process with [facility] for SNF decision.
--- NOTE | 2017-02-10 13:12 | NUR ---
Social Work: Readiness for Discharge Data: Pt is on day 7 of hospitalization. EMR reviewed. Pt discussed in rounds. Pt is possible to discharge later today per morning rounds. Palliative care met with pt and family and have determined to limit interventions but pt is not on comfort care at this time, please see Palliative note for further detail. SW met with pt's son to confirm discharge plan to [facility] pending auth. UR specialist to obtain auth and contact [facility] to arrange transportation at discharge. Pt will discharge to [facility] pending [facility] Authorization with Dr. Steve to follow. BATTERY INSTALLER will continue to follow for needs Assessment: Pt who would benefit from SNF Plan: Pt will d/c to [facility] pending [facility] authorization once stable for d/c. BATTERY INSTALLER will continue to follow. KASSIE Marcus
--- NOTE | 2017-02-10 13:35 | PROG NOTE ---
[address] [address] PROGRESS NOTE PATIENT: ANUPAMA HOBSON : 1925 MR#: [id number] ADMIT: 02/03/2017 JOB ID: [id number] DATE: 02/10/2017 REASON FOR FOLLOWUP: Bilateral pulmonary infiltrates. INTERVAL HISTORY: Over the weekend, the patient has done quite well with her IV Zosyn and she has now completed a full seven days of therapy. She reports that overall her respiratory status has improved. She is not having fevers, chills, significant cough, or pleuritic chest pain. She is no longer complaining of the pain with defecation due to the prolapsed hemorrhoids but does note that she urinates very frequently, though she has no dysuria. PHYSICAL EXAMINATION: Reveals a very thin, elderly female in no acute distress. Her temperature is 36.9, pulse 89, respiratory rate 16, blood pressure 130/64. She is saturating well on room air. She has temporal wasting as noted before. She is awake and alert and about to dig into a large lunch. Her lungs are relatively clear bilaterally with fair air flow. Cardiac tones: Regular rate and rhythm. Abdomen is benign. LABORATORIES: Include a white count which has normalized at 6600. Creatinine is 0.54. Urinalysis without white cells. Micro studies remain negative, including a streptococcal urine antigen. A chest x-ray shows bibasilar consolidation, and the radiologist recommends followup chest x-ray in three months or so. IMPRESSION: This patient has completed an adequate course of broad-spectrum antibiotics for bilateral pulmonary infiltrates with a good response, in terms of her vital signs, clinical status, and white blood cell count. I see no indication for additional antibiotics for either pulmonary infiltrates nor sinusitis. RECOMMENDATIONS: 1. Okay to discontinue antibiotics at this time. 2. I agree with the plans for transfer of the patient to a nursing home facility. 3. This case discussed with Dr. Harris. 4. ID will go ahead and sign off on this case today.
--- NOTE | 2017-02-10 16:24 | PCM.PNMED ---
Subjective Date of Service Feb 10, 2017 Subjective denies any new issues/complaints Exam Vital Signs Vital Sign - Last Date Time Temp Pulse Resp B/P Pulse Ox O2 Delivery O2 Flow Rate FiO2 02/10/17 09:53 Room Air 02/10/17 06:12 36.9 89 16 130/64 95 Intake and Output 02/09/17 02/09/17 02/10/17 Cumulative From/Thru 15:00 23:00 07:00 02/03/17 09:14 - 02/10/17 06:12 Intake Total 1244 ml 520 ml 49516 ml Output Total 550 ml 550 ml 76898 ml Balance 694 ml -30 ml 5684 ml Intake Oral 1244 ml 450 ml 7885 ml IV Total 70 ml 7899 ml Output Urine Total 550 ml 550 ml 8975 ml Urine/Stool Mix 1125 ml # Voids 2 8 20 # Bowel Movements 1 1 24 General: Alert, Cooperative, No Acute Distress Head: Normal Eyes: Scleral Anicteric Nose: Mucous Membr Moist/[place] Mouth: Mucous Membr Moist/[place] Neck: Supple Chest & Lungs: Chest Wall Normal, Clear to auscultation & percussion Cardiovascular: Regular Rate/Rhythm Pulses: NL carotid, radial, femoral, DP, PT Abdomen: Non-tender, Non-distended, Normoactive bowel tones, Soft Extremities: No cyanosis/clubbing/edma bilat Neurological: Grossly Neurologically Intact, Normal Speech IVs and Medications Medications Reviewed: Medications were reviewed in detail Lab and Diagnostics Result Diagram: 02/10/1791402/10/17914 Assessment & Plan 89 year old female with a 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 She stated that she fell off the couch while she was sleeping, and was unable to get up for over an hour. During the fall she struck her head, but denied any significant trauma or headache. She also reported generalized weakness, and decreased PO intake recently. Was on Augmentin prescribed by Dr. Wilkerson to treat a sinus infection recently. # Profound weakness present on admission, slowly improving. -possible secondary to infections, pneumonia and/or sinusitis, chemotherapy -treat infection -Physical Therapy -nutritional support # Possible rhinosinusitis and mastoiditis present on admission. presumed resolved -post treatment with Zosyn IV -appreciate ID consult. will f/u w/ recs. # Possible pneumonia, CAP, present on admission. presumed resolved. -post 7 day treatment with Zosyn and Azithromycin -CT with multifocal bibasilar patch pul opacities, this could represent an unusual organism, (fungal etc) -seen by ID, input appreciated -awaiting further infections markers and culture -Care goals set, patient and family want conservative treatment for this, no invasive procedures but trial of antibiotics and meds OK # Goal of care -appreciate Palliative Care consult -code changed to DNR/DNI, # Chronic relapsed chronic lymphocytic leukemia, present on admission, stable. -chemotherapy is on hold but was planned for the of this month -further f/u by Dr. Wilkerson as outpatient # Elevated liver function tests, present on admission -pretty much back to normal # Glaucoma, stable -monitor # Macular degeneration, partial blindness, stable. -monitor D/C to SNF cancelled today reportedly due to her insurance denying this dispo! She is otherwise clear for d/c pending placement. VTE Mechanical Devices: Intermittant Pneumatic CD Resuscitation Status: DNR/DNI:Do Not Resuscitate/Intubate Limited Interventions: Medications and IV Fluid Time spent 35 min Som Harris Feb 10, 2017 16:24
--- NOTE | 2017-02-10 16:38 | NUR ---
NUTRITION FOLLOW-UP: ASSESS: 89 YO female admitted for weakness secondary to infections, pneumonia and or sinusitis. Consult for cachexia completed on 02/04. Pt po intake is improving with pt eating 25-100% of meals. Pt was supposed to discharge to SNF today, but insurance denied authorization per notes. 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 LABS: Reviewed. Glu 136. MEDS: Reviewed. GI: BM x 1 today. CURRENT WT: 36.9 kg. Admit wt: 37.7 kg. UBW from 03/2013-02/2015 was 43.5-47.8 kg. Wt has slowly declined since February 2015 with pt losing approx. 21% of body weight over the past 2 years. DIET: General, + Vanilla ensure all trays. PO 25-100% EST. NEEDS (Cancer cachexia): 8345-6896 kcals (30-40 kcals/kg BW), 55-75 g protein (1.5-2.0 g/kg BW) NUTRITION DIAGNOSIS: 1.) Malnutrition related to physiological causes increasing nutrient needs due to illness as evidenced by severe wt loss, BMI of 15.2 NUTRITION INTERVENTION: 1.) Continue to send vanilla ensure TID to help encourage weight gain. MONITOR / EVAL: PO intake, labs, nutritional status. Follow per high nutritional risk guidelines.
--- NOTE | 2017-02-10 17:32 | NUR ---
Activity Pt. up frequently to BSC to urinate today. Mds are aware of urinary frequency, and Dr. Reyes prescribed oxybutinin to start tonight to see if that will help. Pt. denies burning or pain with urination.
[2017-02-10 18:33] VITALS: BP 120/61; PULSE 79; RESP 16; O2SAT 95
[2017-02-10 22:04] VITALS: BP 128/73; PULSE 73; RESP 16; O2SAT 95
[2017-02-11] MEDS: Heparin 5,000 Unit/mL Inj SUBQ SCH ×3 (00:33→17:04)
[2017-02-11 02:15] VITALS: BP 122/67; RESP 16; O2SAT 96
[2017-02-11 05:48] VITALS: BP 154/78; PULSE 69; RESP 16; O2SAT 95
--- NOTE | 2017-02-11 06:42 | NUR ---
Urinary Frequency Urinary frequency, urgency,but denies pain at bladder, void 100ml light clear yellow urine each time, urinary output 650ml/12hr,Oxybutynin given at pm. Generalized weakness when OOB,unsteady gait, 1-PA, bed alarm on.
[2017-02-11] MEDS: Azithromycin Inj 500 MG in Dextrose 5% w/Vial Mate 250 ML IV SCH (08:49)
--- NOTE | 2017-02-11 09:12 | NUR ---
Spoke to pt's daughter Lara [phone] who stated she plans to appeal hospital's discharge of the pt. SW provided information for her to do so and explained that she should begin this process immediately. Dtr expressed frustration that insurance denied the pt and was admanant that a SNF is the level of care needed. SW provided info on Respite Care Programs as an alternative to SNF. Dtr stated the family will pay out of pocket for a SNF if their appeal is denied, but are concerned about how they will afford to do so fci. Dt asked SW to edwin GUILLERMO with prior authoriazation unit number and asked that they call to better explain the pt's need for SNF. SW will follow up with GAVIOTA RN and will continue to follow. KASSIE Marcus
[2017-02-11 10:11] LABS: Cryptococcal Ag Negative (Negative)
--- NOTE | 2017-02-11 11:26 | NUR ---
faxed appeal clinicals to [employer] [phone] & [employer] [phone]. Ref#[id number]
[2017-02-11] MEDS: Phenylephrine 0.25% Rectal Suppository RECTAL SCH (13:24)
[2017-02-11 15:40] VITALS: BP 125/65; PULSE 77; RESP 17; O2SAT 98
--- NOTE | 2017-02-11 16:39 | NUR ---
Spoke to to pt's daughter Lara via phone to clarify plan if pt's appeals are denied for SNF and for hospital discharge. Daughter stated that the family plans to private pay for [facility]. SW passed this info along to UR specialist who will resend referral to [facility]. SW will contact daughter when decision comes back on appeal. SW will continue to follow. KASSIE Marcus
--- NOTE | 2017-02-11 17:49 | PCM.PNMED ---
Subjective Date of Service Feb 11, 2017 Subjective denies any new issues/complaints Exam Vital Signs Vital Sign - Last Date Time Temp Pulse Resp B/P Pulse Ox O2 Delivery O2 Flow Rate FiO2 02/11/17 15:40 36.9 77 17 125/65 98 Room Air Intake and Output 02/10/17 02/10/17 02/11/17 Cumulative From/Thru 15:00 23:00 07:00 02/03/17 09:14 - 02/11/17 05:09 Intake Total 951 ml 261 ml 71326 ml Output Total 300 ml 650 ml 39227 ml Balance 651 ml -389 ml 5946 ml Intake Oral 620 ml 200 ml 8705 ml IV Total 331 ml 61 ml 8291 ml Output Urine Total 300 ml 650 ml 9925 ml Urine/Stool Mix 1125 ml # Voids 2 22 # Bowel Movements 3 0 27 Exam General: Alert, Cooperative, No Acute Distress Head: Normal Eyes: Scleral Anicteric Nose: Mucous Membr Moist/[place] Mouth: Mucous Membr Moist/[place] Neck: Supple Chest & Lungs: Chest Wall Normal, Clear to auscultation bilat Cardiovascular: Regular Rate/Rhythm Pulses: NL carotid, radial, femoral, DP, PT Abdomen: Non-tender, Non-distended, Normoactive bowel tones, Soft Extremities: No cyanosis/clubbing/edema bilat Neurological: Grossly Neurologically Intact, Normal Speech IVs and Medications Medications Reviewed: Medications were reviewed in detail Lab and Diagnostics Result Diagram: 02/10/1791402/10/17914 Assessment & Plan 89 year old female with a 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 She stated that she fell off the couch while she was sleeping, and was unable to get up for over an hour. During the fall she struck her head, but denied any significant trauma or headache. She also reported generalized weakness, and decreased PO intake recently. Was on Augmentin prescribed by Dr. Wilkerson to treat a sinus infection recently. # Profound weakness present on admission, slowly improving. -possible secondary to infections, pneumonia and/or sinusitis, chemotherapy -Physical Therapy -nutritional support # Possible rhinosinusitis and mastoiditis present on admission. presumed resolved -post treatment with Zosyn IV -appreciate ID consult. will f/u w/ recs. # Possible pneumonia, CAP, present on admission. presumed resolved. -post 7 day treatment with Zosyn and Azithromycin -CT with multifocal bibasilar patch pul opacities, this could represent an unusual organism, (fungal etc) -seen by ID. input appreciated -Care goals set, patient and family want conservative treatment for this, no invasive procedures but trial of antibiotics and meds OK # Goal of care -appreciate Palliative Care consult -code changed to DNR/DNI, # Chronic relapsed chronic lymphocytic leukemia, present on admission, stable. -chemotherapy is on hold but was planned for the of this month -further f/u by Dr. Wilkerson as outpatient # Elevated liver function tests, present on admission -pretty much back to normal # Glaucoma, stable -monitor # Macular degeneration, partial blindness, stable. -monitor D/C to SNF cancelled on 02/10/17 reportedly due to her insurance denying this dispo! She is otherwise clear for d/c pending placement. VTE Mechanical Devices: Intermittant Pneumatic CD Resuscitation Status: DNR/DNI:Do Not Resuscitate/Intubate Limited Interventions: Medications and IV Fluid Som Harris Feb 11, 2017 17:49
--- NOTE | 2017-02-11 18:52 | NUR ---
Activity Pt sat up for lunch today, stayed sitting up in chair for over an hour. Up to chair again for dinner. Tolerating well. Very [place], can not hear nurse even with volume turned up on hearing aids.
[2017-02-11 20:25] VITALS: BP 136/63; PULSE 76; RESP 16; O2SAT 96
--- NOTE | 2017-02-11 21:05 | NUR ---
Strength/Ambulation P- Pt was admitted for generalized weakness 02/03/17 r/t pneumonia. Pt uses F[facility] to transfer to chair or BSC. I- Pt was encouraged by nursing staff to sit in chair for meals to increase ambulation and strength. E- Pt was able to sit in chair for lunch, was able to tolerate sitting in chair for dinner and for an hour after.
[2017-02-12] MEDS: Heparin 5,000 Unit/mL Inj SUBQ SCH ×3 (00:29→16:27)
[2017-02-12 06:06] VITALS: BP 153/71; PULSE 70; RESP 16; O2SAT 95
--- NOTE | 2017-02-12 06:33 | NUR ---
Uneventful Night Pt denies any pain/n/v/fever/chills/cough. Denies SOB at bedrest, mild SOB observed when OOB to BSC. Generalized weakness,frail,unsteady gait, but overall strength improved. Urinary frequency appears improved after Oxybutynin started, urinate about every 2-3 hours compared every 30min-1hr prior to Oxybutynin use. VSS. Alert and oriented. Bed alarm on, no fall.
[2017-02-12] MEDS: Phenylephrine 0.25% Rectal Suppository RECTAL SCH (08:32)
--- NOTE | 2017-02-12 10:36 | PCM.PALLBR ---
Palliative Care Recommendation Summary of palliative recommendations: -Symptom management (Pain/other):per Attending Blue Team, Dr. Monroe. -DPOA/Advanced Directives/POLST: 1. Currently listed as FULL CODE on EMR (02/06). Changed to DNR/DNI on 02/06 after discussion with Kierra and HCPOA Stephanie on phone. 2. HCPOA is Stephanie Vargas, who is in [facility] currently (lives in [facility] part of the year). 3. Advanced directives have been done in past, but dtr Kierra went to her apt to retrieve that paperwork for the hospital and couldn't find it. 4. POLST completed by Dr. Reyes and family on 02/10. 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 Wilkerson is palliative and not curative. On 02/06, Dr. Bautista counseled Stephanie and Kierra (over the phone) that ID specialist Dr Nichols and Dr. Monroe were wondering how aggressive family would want medical team to be in managing her rhinosinusitis. Dr. Nichols has suggested that to get the best diagnosis and specifically treat the organism would be to get a specimen by bronchoscopy to culture. He suspects the organism might be unusual and hard to treat, given that she is immunosuppressed. Kierra, the HCPOA, understands this and spread the message to her brothers and sisters. On the evening of 02/06, they talked to their mother over the speakerphone last night and she has told them she does not want invasive studies or "heroics." Patient/Family Goals: Family is in agreement that Mom wants to get help for the infection but without having any procedures. In other words, no bronchoscopy. Family believes she needs a DNR/DNI/limited interventions such as IV antibiotics and IV medications and checking labs--but no invasive procedures. Family/emotional support: Excellent. Four children all involved and communicate well with each other and with their mother. Son Adolfo has visited each day several times during day. Other daughter Kierra has been coming in at night to visit. (Stephanie in [place] right now and speaks to her mother on phone). Even though patient identifies Stephanie as "the one in charge of everything, call her first," Stephanie says that all her brothers and sisters "are on the same page, " and if medical providers can't reach Stephanie for a medical decision, it is ok to talk to Kierra or Adolfo instead. (Jason is farther away and doesn't know what' s up yet, as the other siblings are still trying to reach him.) Stephanie Vargas (daughter and HCPOA) [phone], Kierra Cameron (daughter) [phone] Adolfo (son) [phone] Jason (son) in [place] Palliative Care Team will sign off today as goals established and no active symptoms for our team to manage. Thanks for consult. Problems: End of Life Preferences DO NOT RESUSCITATE/DO NOT INTUBATE/limited interventions Disposition To be determined Resuscitation Status Resuscitation Status: DNR/DNI:Do Not Resuscitate/Intubate Limited Interventions: Medications and IV Fluid POLST Updates/Changes Previous POLST?: Yes Artificially Admin Nutrition: No Artifical Nutrition by Tube POLST Discussed with: Patient POLST Review Outcome: New Form Completed Total time [25] minutes; >50% face to face with patient and/or family, providing counselling regarding plans and recommendations, and in care coordination with his/her medical teams. Palliative Brief Note Date of Service Feb 12, 2017 . 89 yo female admitted with weakness and pneumonia-treated and improved. S: pt believes she is being discharged today, but not sure where she is going. Still some cough.Has been living at [facility] but needs more assistance due to urinary sx. Main complaint is urinary frequency Q20 min which exhausts her and disturbs her sleep. She has been followed by urology but for a renal mass since 2012 which has been stable but the urinary freq has not been addressed. She has a hx of vulvar CA treated with partial vulvectomy in 2012, hx breast CA , CLL-chronic, multiple skin CA's-SCCA, BCCA. She told Dr. Reyes she was offered surgery for her urinary freq but she declined. O: ANGOON but mentally astute and decisional.Thin to nearly cachectic moist cough, no choking, coughing with eating including water lungs- rales at bases. COR- RR Neuro-able to stand with assist, mentation as above (per Dr. Reyes's pelvic on 02/11: patient has minimal distention of bladder despite sense of urgency to urinate prior to exam. no uterus palpated but suboptimal exam due to discomfort) Fouzia Bautista MD Feb 12, 2017 10:36 Fouzia Bautista MD Feb 12, 2017 10:36
--- NOTE | 2017-02-12 10:36 | NUR ---
LOC Patient alert and oriented with periods of forgetfulness. Patient continues to be impulsive with getting up to use BSC, but has been using call light for assistance. Patient has been cooperative with care. Patient MALLORY.
[2017-02-12 14:18] VITALS: BP 143/66; PULSE 83; RESP 18; O2SAT 97
--- NOTE | 2017-02-12 14:40 | PCM.PNMED ---
Subjective Date of Service Feb 12, 2017 Subjective denies any new issues/complaints Exam Vital Signs Vital Sign - Last Date Time Temp Pulse Resp B/P Pulse Ox O2 Delivery O2 Flow Rate FiO2 02/12/17 14:21 Room Air 02/12/17 14:18 36.6 83 18 143/66 97 Intake and Output 02/11/17 02/11/17 02/12/17 Cumulative From/Thru 15:00 23:00 07:00 02/03/17 09:14 - 02/12/17 06:24 Intake Total 473 ml 500 ml 62525 ml Output Total 475 ml 700 ml 87683 ml Balance -2 ml -200 ml 5744 ml Intake Oral 473 ml 500 ml 9678 ml IV Total 8291 ml Output Urine Total 475 ml 700 ml 93172 ml Urine/Stool Mix 1125 ml # Voids 22 # Bowel Movements 3 30 Exam General: Alert, Cooperative, No Acute Distress Head: Normal Eyes: Scleral Anicteric Nose: Mucous Membr Moist/[place]erra [place] Mouth: Mucous Membr Moist/[place] Neck: Supple Chest & Lungs: Chest Wall Normal, Clear to auscultation bilat Cardiovascular: Regular Rate/Rhythm Pulses: NL carotid, radial, femoral, DP, PT Abdomen: Non-tender, Non-distended, Normoactive bowel tones, Soft Extremities: No cyanosis/clubbing/edema bilat Neurological: Grossly Neurologically Intact, Normal Speech IVs and Medications Medications Reviewed: Medications were reviewed in detail Lab and Diagnostics Result Diagram: 02/10/1791402/10/17914 Assessment & Plan 89 year old female with a 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 She stated that she fell off the couch while she was sleeping, and was unable to get up for over an hour. During the fall she struck her head, but denied any significant trauma or headache. She also reported generalized weakness, and decreased PO intake recently. Was on Augmentin prescribed by Dr. Wilkerson to treat a sinus infection recently. # Profound weakness present on admission, slowly improving. -possible secondary to infections, pneumonia and/or sinusitis, chemotherapy -Physical Therapy -nutritional support # Possible rhinosinusitis and mastoiditis present on admission. presumed resolved -post treatment with Zosyn IV -appreciate ID consult. will f/u w/ recs. # Possible pneumonia, CAP, present on admission. presumed resolved. -post 7 day treatment with Zosyn and Azithromycin -CT with multifocal bibasilar patch pul opacities, this could represent an unusual organism, (fungal etc) -seen by ID. input appreciated -Care goals set, patient and family want conservative treatment for this, no invasive procedures but trial of antibiotics and meds OK # Goal of care -appreciate Palliative Care consult -code changed to DNR/DNI, # Chronic relapsed chronic lymphocytic leukemia, present on admission, stable. -chemotherapy is on hold but was planned for the of this month -further f/u by Dr. Wilkerson as outpatient # Elevated liver function tests, present on admission -pretty much back to normal # Glaucoma, stable -monitor # Macular degeneration, partial blindness, stable. -monitor D/C to SNF cancelled on 02/10/17 reportedly due to her insurance denying this dispo! She is otherwise clear for d/c pending placement. VTE Mechanical Devices: Intermittant Pneumatic CD Resuscitation Status: DNR/DNI:Do Not Resuscitate/Intubate Limited Interventions: Medications and IV Fluid Som Harris Feb 12, 2017 14:40
--- NOTE | 2017-02-12 14:57 | NUR ---
NSG to amb pt 2-3x/day with FWW and SBA/CGA. PT will continue to see pt 2x/wk for higher level balance training.
--- NOTE | 2017-02-12 15:57 | NUR ---
Social Work: Readiness for d/c Data: Pt is on day 9 of hospitalization. EMR reviewed. [facility] HAND [facility]. [employer] has denied their appeal of their denial. UR RN gave notice they need to leave hospital by 12noon on 02/13. PLEATER HAND spoke with pt's daughter regarding d/c plan. She states they plan to pick pt up on 02/13 around 10am to bring her to [facility]. PLEATER HAND explained HH options, HH choice list provided, no HH preference stated. PLEATER HAND referred pt to [facility], left message with John Palmer, access given, F2F in PLEATER HAND folder. PLEATER HAND will continue to follow. Assessment: Pt going to assisted living. Plan: Pt will d/c to [facility] via POV with family around 10am on 02/13/17 with [facility], PT/OT. PLEATER HAND will continue to follow. KASSIE Siegel
[2017-02-12 16:27] LABS: APPEARANCE,URINE CLEAR (CLEAR,HAZY); COLOR,URINE YELLOW (YELLOW); OCCULT BLOOD,URINE NEGATIVE (NEGATIVE); UROBILINOGEN,URINE NORMAL (NORMAL)
[2017-02-12 20:57] VITALS: BP 144/70; PULSE 75; RESP 18; O2SAT 96
[2017-02-13] MEDS: Heparin 5,000 Unit/mL Inj SUBQ SCH ×2 (01:10→07:35)
[2017-02-13 05:55] VITALS: BP 174/80; PULSE 81; RESP 18; O2SAT 96
--- NOTE | 2017-02-13 06:19 | NUR ---
Urinary Frequency Pt up to BSC multiple times over shift, Pt voiding small amounts of pale urine each time. Pt up to BSC a total of 9 times this shift. Pt has no complaints of painful urination. bladder scan done post void and showed 147.
[2017-02-13] MEDS: Phenylephrine 0.25% Rectal Suppository RECTAL SCH (07:39)
[2017-02-13 10:30] VITALS: BP 143/83; PULSE 106; RESP 18; O2SAT 95
[2017-02-13] MEDS ORDERED: OXYB5TAB10 PO (10:32)
--- NOTE | 2017-02-13 11:04 | NUR ---
Social Work: Discharge Data: Pt is on day 10 of hospitalization. EMR reviewed. D/C orders previously entered. Pt's family states they will be here around 11:30am to transport pt to [facility]. AERONAUTICAL INSPECTOR notified [facility], access previously given, F2F signed and ready for picker/puller. AERONAUTICAL INSPECTOR faxed over D/C orders are [facility]. AERONAUTICAL INSPECTOR updated pt, pt's family, RN, MD of plan all updated and agreeable. No further d/c planning needs at this time. AERONAUTICAL INSPECTOR will continue to follow. Assessment: Pt who is independent at baseline. Plan: Pt will d/c to [facility] via POV with family today with [facility], PT/OT. No further d/c planning needs at this time. AERONAUTICAL INSPECTOR will continue to follow. KASSIE Siegel
--- NOTE | 2017-02-13 12:07 | NUR ---
Discharge Patient given discharge orders. Patient IV removed fully intact and asymptomatic. Patient report called to Aleyda. Patient given hard copy of prescription. Patient given medication list with times of next dose. Patient given Doctors note. Patient given original copy of POLST. Patient son in room at time of discharge. Patient assisted to main entrance by staff.
--- NOTE | 2017-02-13 18:15 | PCM.DC.MED ---
Discharge Summary Date of Service Feb 13, 2017 Dates of Hospitalization Date of Hospital Admission Feb 03, 2017 at 11:29 Date of Discharge: Feb 13, 2017 Providers: Admitting Physician: Richard Du MD Primary Care Physician: Riaz Lugo MD Attending Physician: Richard Du MD Diagnosis at Time of Discharge Diagnosis at Time of Discharge 1. Profound weakness present on admission, slowly improving. -possible secondary to infections, pneumonia and/or sinusitis 2. Possible rhinosinusitis and mastoiditis present on admission, post treatment with IV Antibiotics 3. Possible pneumonia, CAP, present on admission - post treatment with IV Zosyn and Azithromycin 4. Chronic relapsed chronic lymphocytic leukemia, present on admission, stable. - will need further followup with oncology as outpatient 5. Elevated liver function tests, present on admission, resolved. 6. Glaucoma, stable 7. Macular degeneration, partial blindness, stable. Consultations 1. ID Procedures XRay, CTs & MRIs Date of Service: 02/03/17 0910 PROCEDURE: CT BRAIN WITHOUT CONTRAST ([id number]) IMPRESSION: 1. No acute intracranial abnormality. 2. Moderate to severe chronic white matter small vessel ischemic changes and moderate cerebral volume loss. 3. Small region of encephalomalacia redemonstrated in the left occipital lobe. 4. Bilateral sinus mucosal disease, increased from the prior study, with air- fluid levels in the maxillary sinuses suggesting acute sinusitis. 5. Fluid opacification of the left mastoid air cells redemonstrated compatible with mastoiditis. Dictated by: Shankar Fitzgerald M.D. on 02/03/2017 at 9:55 Approved by: Shankar Fitzgerald M.D. on 02/03/2017 at 10:00 Date of Service: 02/04/17 3724 PROCEDURE: CT CHEST WITHOUT CONTRAST ([id number]) rgans and bowel loops appear normal in the absence of contrast. IMPRESSION: 1. Multifocal basilar patchy pulmonary opacities and small low density pleural effusion suspicious for aspiration/infection. Short interval followup is recommended with resolution of the patient's symptoms to ensure there is no underlying pulmonary pathology. 2. Borderline annular aortic ectasia slightly increased in diameter when compared with the study from 2013. 3. Trace pericardial effusion, new when compared with the study from August 2016. 4. Left upper pole renal mass partially visualized on this limited noncontrast study of the abdomen. 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 Dictated by: Rosita Puentes M.D. on 02/04/2017 at 14:06 Approved by: Rosita Puentes M.D. on 02/04/2017 at 14:14 Date of Service: 02/09/17 0500 PROCEDURE: X-RAY CHEST ONE VIEW, PORTABLE ([id number]) IMPRESSION: Bibasilar consolidation and trace bilateral pleural effusions. Recommend clinical correlation. Nodular density projecting in the left upper lobe of unclear etiology or significance. Recommend followup with PA and lateral chest radiographs in 3 months. Dictated by: Jos Choe M.D. on 02/09/2017 at 7:21 Approved by: Jos Choe M.D. 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 She stated that she fell off the couch while she was sleeping, and was unable to get up for over an hour. During the fall she struck her head, but denied any significant trauma or headache. She also reported generalized weakness, and decreased PO intake recently. Was on Augmentin prescribed by Dr. Wilkerson to treat a sinus infection recently. Hospital Course # Profound weakness present on admission, slowly improving. -possible secondary to infections, pneumonia and/or sinusitis, chemotherapy # Possible rhinosinusitis and mastoiditis present on admission. presumed resolved -post treatment with Zosyn IV -appreciate ID consult. will f/u w/ recs. # Possible pneumonia, CAP, present on admission. presumed resolved. -post 7 day treatment with Zosyn and Azithromycin -CT with multifocal bibasilar patch pul opacities, this could represent an unusual organism, (fungal etc) -seen by ID. input appreciated -Care goals set, patient and family want conservative treatment for this, no invasive procedures but trial of antibiotics and meds OK # Goal of care -appreciate Palliative Care consult -code changed to DNR/DNI, # Chronic relapsed chronic lymphocytic leukemia, present on admission, stable. -chemotherapy is on hold but was planned for the of this month -further f/u by Dr. Wilkerson as outpatient # Elevated liver function tests, present on admission -pretty much back to normal # Glaucoma, stable -monitor # Macular degeneration, partial blindness, stable. -monitor by day of discharge lungs CTA bilaterally. Abdomen is soft, nt, nd, +bs Exam Vital Signs (Last) Date Time Temp Pulse Resp B/P Pulse Ox O2 Delivery O2 Flow Rate FiO2 02/13/17 10:30 36.6 106 18 143/83 95 Room Air Test 02/03/17 09:59 02/03/17 10:23 02/03/17 11:05 02/04/17 05:30 Total Creatine Kinase 28U/L (21-215) Troponin T < 0.010ug/L (0.0-0.011) Thyroid Stimulating Hormone (TSH) 0.684uIU/mL (0.450-4.500) Free Thyroxine 1.42ng/dL (0.82-1.77) Urinalysis Comment None Urine Legionella pneumophilia Ag Negative (Negative) Lactic Acid Level 0.8mmol/L (0.4-2.0) C-Reactive Protein 8.0mg/dL (0.0-0.5) Hepatitis A IgM Antibody Negative (Negative) Hepatitis B Surface Antigen Negative (Negative) Hepatitis B Core IgM Antibody Negative (Negative) Hepatitis C Antibody <0.1s/co ratio (0.0-0.9) Hepatitis C Comment Comment (.) Test 02/05/17 06:22 02/07/17 05:22 02/10/17 09:15 02/10/17 13:40 Band Neutrophils % 2% (1-5) Procalcitonin 0.13ng/mL (0.00-0.08) Total Bilirubin 0.3mg/dL (0.0-1.2) Aspartate Amino Transf (AST/SGOT) 31U/L (0-50) Alanine Aminotransferase (ALT/SGPT) 42U/L (0-32) Alkaline Phosphatase 115U/L (25-165) Total Protein 4.3g/dL (6.4-8.4) Albumin 2.5g/dL (3.4-5.0) White Blood Count 6.6th/mm3 (3.8-10.1) Red Blood Count 4.52mil/mm3 (3.90-5.20) Hemoglobin 13.0g/dL (12.0-15.6) Hematocrit 40.4% (35.0-46.0) Mean Corpuscular Volume 89.4fL (81-100) Mean Corpuscular Hemoglobin 28.8pg (27.0-35.0) Mean Corpuscular Hemoglobin Concent 32.2% (32.0-37.0) Red Cell Distribution Width 15.0% (12.3-15.4) Platelet Count 436bil/L (150-400) Neutrophils (%) (Auto) 46.1% (40-74) Lymphocytes (%) (Auto) 39.8% (14-46) Monocytes (%) (Auto) 11.3% (4-12) Eosinophils (%) (Auto) 1.4% (0-5) Basophils (%) (Auto) 0.5% (0-3) Hematology Comments Wbc Sodium Level 140mEq/L (134-144) Potassium Level 4.0mEq/L (3.5-5.2) Chloride Level 99mEq/L (97-108) Carbon Dioxide Level 28mmol/L (18-29) Blood Urea Nitrogen 19mg/dL (8-27) Creatinine 0.54mg/dL (0.57-1.00) Estimat Glomerular Filtration Rate 152mL/min (>59) Glucose Level 136mg/dL (60-99) Calcium Level 9.3mg/dL (8.5-10.1) Magnesium Level 2.2mg/dL (1.6-2.6) Cryptococcus Antigen Negative (Negative) Aspergillus galactomannan Antigen 0.05Index (0.00-0.49) Test 02/12/17 16:06 Urine Color Yellow (YELLOW) Urine Appearance Clear (CLEAR,HAZY) Urine pH 7.0 (5.0-8.0) Urine Specific [place] 1.010 (1.003-1.035) Urine Protein Negativemg/dL (NEG,TRACE) Urine Glucose (UA) Negativemg/dL (NEGATIVE) Urine Ketones 15mg/dL (NEGATIVE) Urine Occult Blood Negative (NEGATIVE) Urine Nitrite Negative (NEGATIVE) Urine Bilirubin Negative (NEGATIVE) Urine Urobilinogen Normalmg/dL (NORMAL) Urine Leukocyte Esterase Negative (NEGATIVE) Urine RBC 0-2/hpf (0-2) Urine WBC 0-5/hpf (0-5) Urine Epithelial Cells Moderate/hpf (NONE-MOD) Urine Crystals None seen (NONE SEEN) Urine Bacteria None/hpf (NONE-FEW) Urine Hyaline Casts None/lpf (NONE) Urine Granular Casts None seen (NONE SEEN) Urine Waxy Casts None seen (NONE SEEN) Urine Red Blood Cell Casts None seen (NONE SEEN) Urine White Blood Cell Casts None seen (NONE SEEN) Urine Mucus None seen (None Seen) Urine Trichomonas None seen (NONE SEEN) Urine Yeast None (NONE SEEN) Urine Culture Reflexed Not indicated Discharge Medications Discharge Medications Oxybutynin Chloride (Oxybutynin Chloride) 5 Mg Tablet 2.5 MG PO BID Prescribed by: SABI DE LA CRUZ MD Psyllium Husk (Metamucil) 3.4 Gram/5.4 Gram Powder 660 GM PO HS (Reported) Followup Plan Disposition: assisted living with home health Follow-up plan 1. Followup with primary care provider (Dr. Lugo) in 3-7 days 2. Followup with your oncologist (Dr. Wilkerson) in 1-2 weeks or as previously planned Discharge Diet: Low fat, Low Sodium, Heart Healthy Discharge Activity: No restrictions (as tolerated per physical therapy) Follow-up Provider: Riaz Lugo MD Provider: Evy Wilkerson MD Time spent 35 min copies to: Riaz Lugo MD; Evy Wilkerson MD, Masoud Feb 13, 2017 18:15
== END 2017-02-13 14:08 | disposition home health service (06) | DRG 194 ==
LOC: EDBD 08:49 → SED 08:49 → MPC 11:29
PROVIDERS: ADMIT Hospitalist; ATTEND Hospitalist
DX: J18.9 Pneumonia, unspecified organism (principal); C91.12 Chronic lymphocytic leukemia of B-cell type in relapse; E46 Unspecified protein-calorie malnutrition; Z68.1 Body mass index [BMI] 19.9 or less, adult; H70.90 Unspecified mastoiditis, unspecified ear; H40.9 Unspecified glaucoma; H35.30 Unspecified macular degeneration; W07.XXXA Fall from chair, initial encounter; J32.0 Chronic maxillary sinusitis; Z51.5 Encounter for palliative care